=== PATIENT | female | born 1975 | race Caucasian/White ===

== ENCOUNTER 2020-08-26 15:09 | Inpatient (IN) ==
[2020-08-26] MEDS ORDERED: ALPRAZolam 0.5 MG TABLET PO STA ×2 (15:41→18:54)
--- NOTE | 2020-08-26 16:07 | CT Scan Report ---
HEAD CT NONCONTRAST CT DOSE: 638.56 mGycm HISTORY: Confusion. TECHNIQUE: Multiaxial CT images of the head were performed without the use of intravenous contrast. A utomated exposure control was utilized for this study. A dose lowering technique was utilized adheri ng to the principles of ALARA. Comparison: None. Findings: The paranasal sinuses and mastoid air cells are clear. The calvarium and skull base are int act. The ventricles and sulci are within normal limits. There is no mass, hematoma, midline shift, or acute infarct. Impression: No acute intracranial abnormality. ACT 112: Negative or not required by law. Electronically signed by: Bar Reyes M.D. 08/26/2020 4:06 PM
--- NOTE | 2020-08-26 16:14 | CT Scan Report ---
ABDOMEN AND PELVIS CT WITHOUT CONTRAST CT DOSE: 922.96 mGycm HISTORY: Left flank pain. TECHNIQUE: Multiaxial CT images of the abdomen and pelvis were performed without contrast. A dose lo wering technique was utilized adhering to the principles of ALARA. COMPARISON STUDY: None. FINDINGS: The lung bases are clear. No pneumoperitoneum. No pneumatosis. No fractures within the visu alized osseous structures. The unenhanced liver, gallbladder, spleen, adrenal glands, pancreas, and k idneys are unremarkable. No renal or ureteral stones. No hydronephrosis. The bladder and ovaries are within normal limits. An intrauterine device appears in good position. Minimal pelvic free fluid. Thi s is likely physiologic. Suboptimal evaluation for bowel pathology due to the lack of intravenous and oral contrast. Questionable thickening of the distal sigmoid colon is likely due to underdistention. Otherwise, no definite bowel wall thickening or obstruction. Scattered colonic diverticula. No evide nce for acute diverticulitis. Normal appendix. There is a 3 cm aneurysm at the right common femoral a rtery. This demonstrates moderate peripheral calcification. IMPRESSION: 1. No renal or ureteral stones. No hydronephrosis. 2. No definite bowel wall thickening or obstruction. 3. Normal appendix. 4. 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 Follow-up nonemergent vascular surgery consultation r ecommended for further evaluation. ACT 112: Positive. There are findings on this exam that require communication between the performing entity and the patient following Patient Test Result Information Act ([place] Act 112) guidelines. Electronically signed by: Bar Reyes M.D. 08/26/2020 4:13 PM
--- NOTE | 2020-08-26 16:50 | Emergency Department Note ---
Impression & Plan Psychosis, Anxiety, Delusional disorder ED Provider Note NAME: MATEO NIEVES AGE: 45 SEX: F : 1975 ARRIVES VIA: Walk-In INFORMANT: Patient, ED PROVIDER(S): Anthony Craig DO CHIEF COMPLAINT: Anxiety HPI: The patient is a 45-year-old female who presented to the emergency department through triage. The patient was dropped off at the front door. The patient states that she needs help with her mental health problems. The patient states that she has very severe anxiety. She states that she normally takes Xanax for her anxiety but has not taken this medication "in many years". The patient does not have any suicidal or homicidal ideation she will admit to. She denies having any fever. She states that she is very sick and keeps talking about Manuel and about God. She has significant adventism preoccupation. She states that she is very sick complaining of pain over her entire body. She denies having any recent injuries. She denies having any vomiting. She has had no exposure to COVID-19. The patient states that she is not from the area but staying with friends. ROS: See above HPI for pertinent positives & negatives. A total of 10 systems reviewed and were otherwise negative. PAST MEDICAL HISTORY: See Below PAST SURGICAL HISTORY: See Below FAMILY HISTORY: See Below SOCIAL HISTORY: See Below HOME MEDICATIONS: See Below ALLERGIES: See Below VITALS: See Below PHYSICAL EXAMINATION: GENERAL: The patient is awake and alert. She is somewhat anxious appearing and very guarded. EYES: The conjunctivae are clear. The pupils are round and reactive. EARS, NOSE, MOUTH AND THROAT: The nose is without any evidence of any deformity. Mucous membranes are moist. Tongue is midline. NECK: The neck is nontender and supple. RESPIRATORY: Normal respiratory effort is noted there is no evidence of wheezing rhonchi or rales CARDIOVASCULAR: Regular rate and rhythm noted there no murmurs rubs or gallops normal S1 normal S2. GASTROINTESTINAL: The abdomen is soft. Abdomen is nontender. MUSCULOSKELETAL/EXTREMITIES: There is no evidence of gross deformity full range of motion is noted in the hips and shoulders. SKIN: There is no obvious evidence of any rash. There are no petechiae, pallor or cyanosis noted. NEUROLOGIC: Patient is awake alert and oriented x3 strength is symmetric patellar reflexes are 2+ bilaterally PSYCH: The patient makes good eye contact for most of the evaluation. She is very guarded and appears very anxious. She is currently denying any suicidal i deation. The patient voices significant adventism preoccupation throughout the entire evaluation. MEDICAL DECISION MAKING: The patient is a 45-year-old female who presented to the emergency department for mental health evaluation. The patient was having severe anxiety as well as delusional behavior. She had significant adventism preoccupation. She cont inued to ask for anxiety medication. She was treated with Xanax in the emergency department. She was medically cleared in the emergency department which included also work-up for chronic pain. The patient did not have a definite history of mental health disorder other than panic attack. For this reason CT the head was obtained to ensure there was no other medical issues. The patient was reluctant to being inpatient and appeared to have some manipulative tendencies. For this reason I do feel the patient would be better served with a 302 petition to ensure her compliance with inpatient management. The patient was evaluated by the mental health adult protective caseworker in the emergency department. Triage Nursing notes reviewed. Prior medical records reviewed Vital Signs: reviewed and remarkable for no significant abnormalities Differential diagnosis: Mood disorder, infection, hypoglycemia, electrolyte abnormalities, cardiac sources, intracerebral event, toxicologic, trauma, neurologic, as well as other pathologies. ER treatment provided: See below Diagnostics interpreted by me: ECG: none Laboratory studies: As stated above and show below. Imaging studies: See below Consultation(s): none Past Med/Surg History Medical History Anxiety Panic attacks Social History Smoking Status: Current every day smoker Tobacco Type: Cigarettes Allergies Allergies Allergy/AdvReac Type Severity Reaction Status Date / Time No Known Allergies Allergy Verified 08/26/20 17:13 Home Meds Home Medications Medication Instructions Recorded Confirmed alprazolam [Xanax] 0.5 mg PO BID PRN 08/26/20 08/26/20 Results & Data (ED) Vital Signs Vital Signs - 24 hr 08/26/20 15:15 08/26/20 17:05 08/26/20 19:01 Temperature 36.3 C L Temperature Source Oral Pulse Rate 101 H Pulse Rate [Radial] 88 77 Pulse Rhythm [Radial] Regular Regular Pulse Strength [Radial] Normal Respiratory Rate 18 20 16 Respiratory Effort / Characteristics Non-Labored Spontaneous Non-Labored Spontaneous Non-Labored Spontaneous Respiratory Depth Normal Normal Respiratory Pattern Regular Regular Regular Blood Pressure 173/111 H Blood Pressure [Left Arm] 172/110 H 115/70 Blood Pressure Mean 131 Blood Pressure Mean [Left Arm] 130 85 Blood Pressure Position Sitting Blood Pressure Position [Left Arm] Lying Pulse Oximetry 99 97 97 Oxygen Delivery Method Room Air Room Air Room Air Sepsis Recent Fever Within 48 Hours No Sepsis New/Unexplained Change in Mental Status N/A Sepsis Action Taken by Nursing No Action Required Home Medications Current Medication List: was personally reviewed by me Laboratory Data Attestation: I reviewed the patient's lab results. Result diagrams: 08/26/20 20:00 08/26/20 16:25 Lab Results 08/26/20 08/26/20 08/26/20 Range/Units 16:25 16:25 16:25 WBC Cancelled RBC Cancelled Hgb Cancelled Hct Cancelled MCV Cancelled MCH Cancelled MCHC Cancelled RDW Std Deviation Cancelled RDW Coeff of Melissa Cancelled Plt Count Cancelled MPV Cancelled Immature Gran % (Auto) Cancelled Neut % (Auto) Cancelled Lymph % (Auto) Cancelled [place] % (Auto) Cancelled Eos % (Auto) Cancelled Baso % (Auto) Cancelled Neut # (Auto) Cancelled Lymph # (Auto) Cancelled [place] # (Auto) Cancelled Eos # (Auto) Cancelled Baso # (Auto) Cancelled Immature Gran # (Auto) Cancelled Absolute Nucleated RBC Cancelled Nucleated RBC % (auto) Cancelled Neutrophils % (Manual) Cancelled Band Neutrophils % Cancelled Lymphocytes % (Manual) Cancelled Prolymphocyte % Cancelled Reactive Lymphs % (Man) Cancelled Monocytes % (Manual) Cancelled Eosinophils % (Manual) Cancelled Basophils % (Manual) Cancelled Metamyelocytes % (Man) Cancelled Myelocytes % (Man) Cancelled Promyelocytes % (Man) Cancelled Blast Cells % (Manual) Cancelled Plasma Cell % (Manual) Cancelled Other Cells % Cancelled Nucleated RBC % Cancelled Neutrophils # (Manual) Cancelled Band Neutrophils # Cancelled Total Absolute Neuts Cancelled Lymphocytes # (Manual) Cancelled Prolymphocyte # Cancelled Reactive Lymphs # Cancelled Total Abs Lymphocytes Cancelled Monocytes # (Manual) Cancelled Eosinophils # (Manual) Cancelled Basophils # (Manual) Cancelled Metamyelocytes # (Man) Cancelled Myelocytes # (Manual) Cancelled Promyelocytes # (Man) Cancelled Blast Cells # (Man) Cancelled Plasma Cell # (Manual) Cancelled Other Cells # Cancelled Nucleated RBCs # (Man) Cancelled Hypersegmented Neuts Cancelled Hyposegmented Neuts Cancelled Hypogranular Neuts Cancelled Large Granular Lymphs Cancelled # Lrg Granular Lymphs Cancelled Hairy Cells Cancelled Smudge Cells Cancelled Toxic Granulation Cancelled Toxic Vacuolation Cancelled Dohle Bodies Cancelled Luz Maria Rods Cancelled Platelet Estimate Cancelled Hypogranular Platelets Cancelled Clumped Platelets Cancelled Giant Platelets Cancelled Platelet Satelliting Cancelled RBC Morphology Cancelled Polychromasia Cancelled Hypochromasia Cancelled Poikilocytosis Cancelled Basophilic Stippling Cancelled Anisocytosis Cancelled Microcytosis Cancelled Macrocytosis Cancelled Spherocytes Cancelled Pappenheimer Bodies Cancelled Sickle Cells Cancelled Target Cells Cancelled Tear Drop Cells Cancelled Ovalocytes Cancelled Stomatocytes Cancelled [place]ep[place] Bodies Cancelled Echinocytes Cancelled Acanthocytes (Spur) Cancelled Rouleaux Cancelled RBC Agglutinates Cancelled Schistocytes Cancelled RBC Morph Comment Cancelled Sezary Cell Cancelled Sodium 140 (136-145) mmol/L Potassium 3.8 (3.5-5.1) mmol/L Chloride 111 H (98-107) mmol/L Carbon Dioxide 22 (21-32) mmol/L Anion Gap 7.0 (3-11) BUN 14 (7-18) mg/dl Creatinine 0.74 (0.6-1.2) mg/dl Est Cr Clr Drug Dosing 105.6 ml/min Est GFR ( Amer) 114.2 Est GFR (Non-Af Amer) 98.5 BUN/Creatinine Ratio 18.8 (10-20) Glucose 99 (70-99) mg/dl Calcium 8.9 (8.5-10.1) mg/dl Total Bilirubin 0.4 (0.2-1) mg/dl AST 33 (15-37) U/L ALT 54 (12-78) U/L Alkaline Phosphatase 82 (45-117) U/L Total Protein 7.9 (6.4-8.2) gm/dl Albumin 4.0 (3.4-5.0) gm/dl Globulin 3.9 (2.5-4.0) gm/dl Albumin/Globulin Ratio 1.0 (0.9-2) TSH 1.270 (0.300-4.500) uIu/ml HCG, Qual (Negative) Urine Color Urine Appearance (Clear) Urine pH (4.5-7.5) Ur Specific [place] (1.000-1.030) Urine Protein (Negative) Urine Glucose (UA) (Negative) Urine Ketones (Negative) Urine Blood (Negative) Urine Nitrite (Negative) Urine Bilirubin (Negative) Urine Urobilinogen (Negative) Ur Leukocyte Esterase (Negative) Urine WBC (Auto) (0-5) /hpf Urine RBC (Auto) (0-4) /hpf U Hyaline Cast (Auto) (0-5) /lpf U Epithel Cells (Auto) (0-5) /lpf Urine Bacteria (Auto) (Negative) Salicylates < 1.7 L (2.8-20) mg/dl Urine Opiates Screen (Neg) Ur Methadone, Qual (Neg) Acetaminophen 5 L (10-30) ug/ml Urine Barbiturates (Neg) Ur Phencyclidine (PCP) (Neg) U Amphetamin/Meth Scrn (Neg) MDMA (Ecstasy) Screen (Neg) U Benzodiazepines Scrn (Neg) Ur Cocaine Metabolite (Neg) U Marijuana (THC) Screen (Neg) Ethyl Alcohol mg/dL (0-3) mg/dl 08/26/20 08/26/20 08/26/20 Range/Units 16:25 16:25 18:55 WBC RBC Hgb Hct MCV MCH MCHC RDW Std Deviation RDW Coeff of Melissa Plt Count MPV Immature Gran % (Auto) Neut % (Auto) Lymph % (Auto) [place] % (Auto) Eos % (Auto) Baso % (Auto) Neut # (Auto) Lymph # (Auto) [place] # (Auto) Eos # (Auto) Baso # (Auto) Immature Gran # (Auto) Absolute Nucleated RBC Nucleated RBC % (auto) Neutrophils % (Manual) Band Neutrophils % Lymphocytes % (Manual) Prolymphocyte % Reactive Lymphs % (Man) Monocytes % (Manual) Eosinophils % (Manual) Basophils % (Manual) Metamyelocytes % (Man) Myelocytes % (Man) Promyelocytes % (Man) Blast Cells % (Manual) Plasma Cell % (Manual) Other Cells % Nucleated RBC % Neutrophils # (Manual) Band Neutrophils # Total Absolute Neuts Lymphocytes # (Manual) Prolymphocyte # Reactive Lymphs # Total Abs Lymphocytes Monocytes # (Manual) Eosinophils # (Manual) Basophils # (Manual) Metamyelocytes # (Man) Myelocytes # (Manual) Promyelocytes # (Man) Blast Cells # (Man) Plasma Cell # (Manual) Other Cells # Nucleated RBCs # (Man) Hypersegmented Neuts Hyposegmented Neuts Hypogranular Neuts Large Granular Lymphs # Lrg Granular Lymphs Hairy Cells Smudge Cells Toxic Granulation Toxic Vacuolation Dohle Bodies Luz Maria Rods Platelet Estimate Hypogranular Platelets Clumped Platelets Giant Platelets Platelet Satelliting RBC Morphology Polychromasia Hypochromasia Poikilocytosis Basophilic Stippling Anisocytosis Microcytosis Macrocytosis Spherocytes Pappenheimer Bodies Sickle Cells Target Cells Tear Drop Cells Ovalocytes Stomatocytes Zepeda[place] Bodies Echinocytes Acanthocytes (Spur) Rouleaux RBC Agglutinates Schistocytes RBC Morph Comment Sezary Cell Sodium (136-145) mmol/L Potassium (3.5-5.1) mmol/L Chloride (98-107) mmol/L Carbon Dioxide (21-32) mmol/L Anion Gap (3-11) BUN (7-18) mg/dl Creatinine (0.6-1.2) mg/dl Est Cr Clr Drug Dosing ml/min Est GFR ( Amer) Est GFR (Non-Af Amer) BUN/Creatinine Ratio (10-20) Glucose (70-99) mg/dl Calcium (8.5-10.1) mg/dl Total Bilirubin (0.2-1) mg/dl AST (15-37) U/L ALT (12-78) U/L Alkaline Phosphatase (45-117) U/L Total Protein (6.4-8.2) gm/dl Albumin (3.4-5.0) gm/dl Globulin (2.5-4.0) gm/dl Albumin/Globulin Ratio (0.9-2) TSH (0.300-4.500) uIu/ml HCG, Qual Negative (Negative) Urine Color Yellow Urine Appearance Cloudy A (Clear) Urine pH 5.5 (4.5-7.5) Ur Specific [place] 1.019 (1.000-1.030) Urine Protein Negative (Negative) Urine Glucose (UA) Negative (Negative) Urine Ketones Negative (Negative) Urine Blood Negative (Negative) Urine Nitrite Positive A (Negative) Urine Bilirubin Negative (Negative) Urine Urobilinogen Negative (Negative) Ur Leukocyte Esterase Trace H (Negative) Urine WBC (Auto) 1-5 (0-5) /hpf Urine RBC (Auto) 0-4 (0-4) /hpf U Hyaline Cast (Auto) 1-5 (0-5) /lpf U Epithel Cells (Auto) >30 H (0-5) /lpf Urine Bacteria (Auto) 4+ H (Negative) Salicylates (2.8-20) mg/dl Urine Opiates Screen (Neg) Ur Methadone, Qual (Neg) Acetaminophen (10-30) ug/ml Urine Barbiturates (Neg) Ur Phencyclidine (PCP) (Neg) U Amphetamin/Meth Scrn (Neg) MDMA (Ecstasy) Screen (Neg) U Benzodiazepines Scrn (Neg) Ur Cocaine Metabolite (Neg) U Marijuana (THC) Screen (Neg) Ethyl Alcohol mg/dL < 3.0 (0-3) mg/dl 08/26/20 08/26/20 Range/Units 18:55 20:00 WBC 7.73 RBC 4.23 Hgb 13.7 Hct 38.5 MCV 91.0 MCH 32.4 MCHC 35.6 RDW Std Deviation 41.8 RDW Coeff of Melissa 12.5 Plt Count 195 MPV 10.2 Immature Gran % (Auto) 0.1 Neut % (Auto) 62.6 Lymph % (Auto) 29.2 [place] % (Auto) 6.5 Eos % (Auto) 1.3 Baso % (Auto) 0.3 Neut # (Auto) 4.84 Lymph # (Auto) 2.26 [place] # (Auto) 0.50 Eos # (Auto) 0.10 Baso # (Auto) 0.02 Immature Gran # (Auto) 0.01 Absolute Nucleated RBC Nucleated RBC % (auto) Neutrophils % (Manual) Band Neutrophils % Lymphocytes % (Manual) Prolymphocyte % Reactive Lymphs % (Man) Monocytes % (Manual) Eosinophils % (Manual) Basophils % (Manual) Metamyelocytes % (Man) Myelocytes % (Man) Promyelocytes % (Man) Blast Cells % (Manual) Plasma Cell % (Manual) Other Cells % Nucleated RBC % Neutrophils # (Manual) Band Neutrophils # Total Absolute Neuts Lymphocytes # (Manual) Prolymphocyte # Reactive Lymphs # Total Abs Lymphocytes Monocytes # (Manual) Eosinophils # (Manual) Basophils # (Manual) Metamyelocytes # (Man) Myelocytes # (Manual) Promyelocytes # (Man) Blast Cells # (Man) Plasma Cell # (Manual) Other Cells # Nucleated RBCs # (Man) Hypersegmented Neuts Hyposegmented Neuts Hypogranular Neuts Large Granular Lymphs # Lrg Granular Lymphs Hairy Cells Smudge Cells Toxic Granulation Toxic Vacuolation Dohle Bodies Luz Maria Rods Platelet Estimate Hypogranular Platelets Clumped Platelets Giant Platelets Platelet Satelliting RBC Morphology Polychromasia Hypochromasia Poikilocytosis Basophilic Stippling Anisocytosis Microcytosis Macrocytosis Spherocytes Pappenheimer Bodies Sickle Cells Target Cells Tear Drop Cells Ovalocytes Stomatocytes Zepeda-[place] Bodies Echinocytes Acanthocytes (Spur) Rouleaux RBC Agglutinates Schistocytes RBC Morph Comment Sezary Cell Sodium (136-145) mmol/L Potassium (3.5-5.1) mmol/L Chloride (98-107) mmol/L Carbon Dioxide (21-32) mmol/L Anion Gap (3-11) BUN (7-18) mg/dl Creatinine (0.6-1.2) mg/dl Est Cr Clr Drug Dosing ml/min Est GFR ( Amer) Est GFR (Non-Af Amer) BUN/Creatinine Ratio (10-20) Glucose (70-99) mg/dl Calcium (8.5-10.1) mg/dl Total Bilirubin (0.2-1) mg/dl AST (15-37) U/L ALT (12-78) U/L Alkaline Phosphatase (45-117) U/L Total Protein (6.4-8.2) gm/dl Albumin (3.4-5.0) gm/dl Globulin (2.5-4.0) gm/dl Albumin/Globulin Ratio (0.9-2) TSH (0.300-4.500) uIu/ml HCG, Qual (Negative) Urine Color Urine Appearance (Clear) Urine pH (4.5-7.5) Ur Specific [place] (1.000-1.030) Urine Protein (Negative) Urine Glucose (UA) (Negative) Urine Ketones (Negative) Urine Blood (Negative) Urine Nitrite (Negative) Urine Bilirubin (Negative) Urine Urobilinogen (Negative) Ur Leukocyte Esterase (Negative) Urine WBC (Auto) (0-5) /hpf Urine RBC (Auto) (0-4) /hpf U Hyaline Cast (Auto) (0-5) /lpf U Epithel Cells (Auto) (0-5) /lpf Urine Bacteria (Auto) (Negative) Salicylates (2.8-20) mg/dl Urine Opiates Screen Neg (Neg) Ur Methadone, Qual Neg (Neg) Acetaminophen (10-30) ug/ml Urine Barbiturates Neg (Neg) Ur Phencyclidine (PCP) Neg (Neg) U Amphetamin/Meth Scrn Neg (Neg) MDMA (Ecstasy) Screen Neg (Neg) U Benzodiazepines Scrn Pos H (Neg) Ur Cocaine Metabolite Neg (Neg) U Marijuana (THC) Screen Neg (Neg) Ethyl Alcohol mg/dL (0-3) mg/dl Administered Medications Discontinued Medications Acetaminophen (Acetaminophen 500 Mg Tab) 1,000 mg PO NOW STA Stop: 08/26/20 19:32 Last Admin: 08/26/20 20:11 Dose: 1,000 mg Documented by: [id number] Alprazolam (Alprazolam 0.5 Mg Tablet) 1 mg PO NOW STA Stop: 08/26/20 15:42 Last Admin: 08/26/20 15:45 Dose: 1 mg Documented by: [id number] Alprazolam (Alprazolam 0.5 Mg Tablet) 1 mg PO NOW STA Stop: 08/26/20 18:55 Last Admin: 08/26/20 19:03 Dose: 1 mg Documented by: [id number] Imaging Data Radiologist's Impression: Patient: MATEO NIEVES Admit Date: 08/26/20 MR#: [id number] Address1: [address] [place] [address] Acct ID:[id number] Address2: [facility] Date: 1975 [facility] Zip: [place] [address] Age: 45 Location: ED Sex: F Room/Bed: Att Phy: Diagnosis: REALLY SICK Holly Phy: PCP,NO Service Date: 08/26/20 [facility] Phy: Interpreting Phy: Bar Reyes MD Admit Phy: Ordering Phy: Anthony Craig DO cc: ~ XR chest 1V portable HISTORY: Altered mental status. COMPARISON: None. FINDINGS: No pneumothorax. No pleural effusions. The lungs are clear. The heart is normal in size. Old, healed left-sided rib fractures. IMPRESSION: No acute process. ACT 112: Negative or not required by law. Electronically signed by: Bar Reyes M.D. 08/26/2020 4:53 PM Dictated: 08/26/201651 Transcribed: 08/26/201651 Patient: MATEO NIEVES Admit Date: 08/26/20 MR#: [id number] Address1: [place] Acct ID:[id number] Address2: [address] Date: 1975 [facility] Zip: [place], [place] Age: 45 Location: ED Sex: F Room/Bed: Att Phy: Diagnosis: REALLY SICK Holly Phy: PCP,NO Service Date: 08/26/20 [facility] Phy: Interpreting Phy: Bar Reyes MD Admit Phy: Ordering Phy: Anthony Craig DO cc: ~ HEAD CT NONCONTRAST CT DOSE: 638.56 mGycm HISTORY: Confusion. TECHNIQUE: Multiaxial CT images of the head were performed without the use of intravenous contrast. Automated exposure control was utilized for this study. A dose lowering technique was utilized adhering to the principles of ALARA. Comparison: None. Findings: The paranasal sinuses and mastoid air cells are clear. The calvarium and skull base are intact. The ventricles and sulci are within normal limits. There is no mass, hematoma, midline shift, or acute infarct. Impression: No acute intracranial abnormality. ACT 112: Negative or not required by law. Electronically signed by: Bar Reyes M.D. 08/26/2020 4:06 PM Dictated: 08/26/20 1600 Transcribed: 08/26/20 1600 Patient: MATEO NIEVES Admit Date: 08/26/20 MR#: [id number] Address1: [place] Acct ID:[id number] Address2: [place] Date: 1975 [facility] Zip: [place] Age: 45 Location: ED Sex: F Room/Bed: Att Phy: Diagnosis: REALLY SICK Holly Phy: PCP,NO Service Date: 08/26/20 [facility] Phy: Interpreting Phy: Bar Reyes MD Admit Phy: Ordering Phy: Anthony Craig, cc: ~ ABDOMEN AND PELVIS CT WITHOUT CONTRAST CT DOSE: 922.96 mGycm HISTORY: Left flank pain. TECHNIQUE: Multiaxial CT images of the abdomen and pelvis were performed without contrast. A dose lowering technique was utilized adhering to the principles of ALARA. COMPARISON STUDY: None. FINDINGS: The lung bases are clear. No pneumoperitoneum. No pneumatosis. No fractures within the visualized osseous structures. The unenhanced liver, ga llbladder, spleen, adrenal glands, pancreas, and kidneys are unremarkable. No renal or ureteral stones. No hydronephrosis. The bladder and ovaries are within normal limits. An intrauterine device appears in good position. Minimal pelvic free fluid. This is likely physiologic. Suboptimal evaluation for bowel pathology due to the lack of intravenous and oral contrast. Questionable thickening of the distal sigmoid colon is likely due to underdistention. Otherwise, no definite bowel wall thickening or obstruction. Scattered colonic diverticula. No evidence for acute diverticulitis. Normal appendix. There is a 3 cm aneurysm at the right common femoral artery. This demonstrates moderate peripheral calcification. IMPRESSION: 1. No renal or ureteral stones. No hydronephrosis. 2. No definite bowel wall thickening or obstruction. 3. Normal appendix. 4. 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 Follow-up nonemergent vascular surgery consultation recommended for further evaluation. ACT 112: Positive. There are findings on this exam that require communication between the performing entity and the patient following Patient Test Result Information Act ([place] Act 112) guidelines. Electronically signed by: Bar Reyes M.D. 08/26/2020 4:13 PM Dictated: 08/26/201605 Transcribed: 08/26/201605 Blood Pressure Blood Pressure Findings: Normal blood pressure Discharge Plan Visit Data Chief Complaint: Mental Health Evaluation Stated Complaint: REALLY SICK ED Provider: Anthony Craig Discharge Problem: Psychosis, Anxiety, Delusional disorder Patient Disposition: Still a Patient Condition: Good Forms Stand Alone Forms: My [facility], Suicide Prevention Resources Prescriptions Prescriptions: No Action alprazolam [Xanax] 0.5 mg Tablet 0.5 mg PO BID PRN (Reason: Anxiety) RF: 0 Referrals Referrals: PCP,NO [Primary Care Provider] - Discharge Problem: Psychosis Qualifiers: Psychosis type: unspecified psychosis type Qualified Code(s): F29 - Unspecified psychosis not due to a substance or known physiological condition
--- NOTE | 2020-08-26 16:54 | XRay Report ---
XR chest 1V portable HISTORY: Altered mental status. COMPARISON: None. FINDINGS: No pneumothorax. No pleural effusions. The lungs are clear. The heart is normal in size. Ol d, healed left-sided rib fractures. IMPRESSION: No acute process. ACT 112: Negative or not required by law. Electronically signed by: Bar Reyes M.D. 08/26/2020 4:53 PM
[2020-08-26 17:01] LABS: Acetaminophen 5 ug/ml (10-30); Salicylate < 1.7 mg/dl (2.8-20)
[2020-08-26 17:02] LABS: Pregnancy Test, Serum Negative (Negative)
[2020-08-26 17:12] LABS: BUN Creatinine Ratio 18.8 (10-20); Bilirubin,Total 0.4 mg/dl (0.2-1); Calcium 8.9 mg/dl (8.5-10.1); Creatinine Clr Calc Pharmacy 105.6 ml/min; Est GFR (African American) 114.2; Est GFR (Non-African American) 98.5; Globulin 3.9 gm/dl (2.5-4.0); Potassium 3.8 mmol/L (3.5-5.1); Thyroid Stimulating Hormone 1.27 uIu/ml (0.300-4.500); Total Protein 7.9 gm/dl (6.4-8.2)
[2020-08-26 19:07] LABS: Appearance Urine Cloudy (Clear); Bacteria Urine Automated 4+ (Negative); Bilirubin Urine Negative (Negative); Blood Urine Negative (Negative); Color Urine Yellow; Epithelial Cell Urine Auto >30 /lpf (0-5); Glucose Urine UA Negative (Negative); Ketones Urine Negative (Negative); Leukocyte Esterase Urine Trace (Negative); Nitrite Urine Positive (Negative); Protein Urine Negative (Negative); RBC Urine Automated 0-4 /hpf (0-4); Specific Gravity Urine 1.019 (1.000-1.030); Urobilinogen Urine Negative (Negative); pH Urine 5.5 (4.5-7.5)
[2020-08-26] MEDS ORDERED: ACETAMINOPHEN 500 MG TAB PO STA (19:31)
[2020-08-26 19:34] LABS: Amphetamines+Metham, Urine Neg (Neg); Barbiturates, Urine Neg (Neg); Benzodiazepine, Urine Pos (Neg); Cocaine, Urine Neg (Neg); MDMA (Ecstacy), Urine Neg (Neg); Methadone, Urine Neg (Neg); Opiate, Urine Neg (Neg); Phencyclidine, Urine Neg (Neg)
[2020-08-26 20:08] LABS: Basophils # (auto) 0.02 K/uL (0-0.2); Basophils % (auto) 0.3 %; Eosinophils % (auto) 1.3 %; Hematocrit (blood only) 38.5 % (37-47); Hemoglobin 13.7 g/dL (12.0-16.0); Immature Granulocytes # (auto) 0.01 K/uL (0.00-0.02); Immature Granulocytes % (auto) 0.1 %; Lymphocytes # (auto) 2.26 K/uL (1.2-3.4); Lymphocytes % (auto) 29.2 %; Mean Corpuscular Hemoglobin 32.4 pg (25-34); Mean Corpuscular Hgb Conc 35.6 g/dL (32-36); Mean Platelet Volume 10.2 fL (7.4-10.4); Monocytes % (auto) 6.5 %; Neutrophils # (auto) 4.84 K/uL (1.4-6.5); Neutrophils % (auto) 62.6 %; Platelet Count 195 K/uL (130-400); RDW Coefficient of Variation 12.5 % (11.5-14.5); RDW Standard Deviation 41.8 fL (36.4-46.3); Red Blood Count 4.23 M/uL (4.2-5.4); White Blood Count 7.73 K/uL (4.8-10.8)
[2020-08-26] MEDS ORDERED: SODIUM CHLORIDE 0.65% NA SOLN 45 ML (OCEAN) PRN (23:40)
[2020-08-26] MEDS ORDERED: BISMUTH SUBSALICYLATE LIQD 236 ML PO PRN (23:40)
[2020-08-26] MEDS ORDERED: MAGNESIUM HYDROXIDE SUSP 30 ML UDC PO PRN (23:40)
--- NOTE | 2020-08-27 01:52 | Emergency Department Note ---
ED Visit Note The patient was taken in signout from Dr. Craig at the change of shift. Please see that note for details. The patient was pending inpatient psychiatric placement for psychosis with lack of insight with 302 upheld following medical clearance. She was accepted to [facility], however, due to staffing will not go upstairs until tomorrow morning. [facility] recommends AWSS monitoring and Risperdal M tab 0.5mg q6h prn psychosis. Patient signed out to Dr. Michaels at change of shift. . : Psychosis Qualifiers: Psychosis type: unspecified psychosis type Qualified Code(s): F29 - Unspecified psychosis not due to a substance or known physiological condition
--- NOTE | 2020-08-27 07:10 | Emergency Department Note ---
ED Visit Note Patient signed out to me at change of shift by Dr. Castro. Please see his note for additional information. Patient was previously medically cleared, and is currently a sign 302. Patient was accepted at [facility]. however she could not be moved there until later on this morning. Patient remained in the emergency room overnight. 0710: No issues regarding the patient overnight. Patient still awaiting transport upstairs to [facility]. . : Psychosis Qualifiers: Psychosis type: unspecified psychosis type Qualified Code(s): F29 - Unspecified psychosis not due to a substance or known physiological condition
[2020-08-27] MEDS: risperiDONE ODT 0.5 MG SOLTAB PO PRN ×2 (10:33→17:01)
[2020-08-27] MEDS: ACETAMINOPHEN 325 MG TAB PO PRN ×2 (10:34→17:52)
[2020-08-27] MEDS ORDERED: LORazepam 1 MG TAB PO PRN (11:40)
[2020-08-27] MEDS: ALUMINUM/MAGNESIUM SUSP 30 ML UDC PO PRN (11:41)
[2020-08-27] MEDS ORDERED: LORazepam 0.5 MG TAB PO ONE (11:47)
[2020-08-27] MEDS ORDERED: risperiDONE ODT 0.5 MG SOLTAB PO ONE (12:00)
[2020-08-27] MEDS: LORazepam 1 MG TAB PO PRN ×4 (12:49→21:10)
--- NOTE | 2020-08-27 15:02 | History & Physical ---
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 Rouleaux RBC Agglutinates Schistocytes RBC Morph Comment Sezary Cell Sodium Potassium Chloride Carbon Dioxide Anion Gap BUN Creatinine Est Cr Clr Drug Dosing Est GFR ( Amer) Est GFR (Non-Af Amer) BUN/Creatinine Ratio Glucose Calcium Total Bilirubin AST ALT Alkaline Phosphatase Total Protein Albumin Globulin Albumin/Globulin Ratio TSH HCG, Qual Urine Color Urine Appearance Urine pH Ur Specific [place] Urine Protein Urine Glucose (UA) Urine Ketones Urine Blood Urine Nitrite Urine Bilirubin Urine Urobilinogen Ur Leukocyte Esterase Urine WBC (Auto) Urine RBC (Auto) U Hyaline Cast (Auto) U Epithel Cells (Auto) Urine Bacteria (Auto) Salicylates Urine Opiates Screen Ur Methadone, Qual Acetaminophen Urine Barbiturates Ur Phencyclidine (PCP) U Amphetamin/Meth Scrn MDMA (Ecstasy) Screen U OH-Alprazolam Confrm U Benzodiazepines Scrn 7-Amino Clonazepam Ur Nordiazepam Confirm U OH-ethylflurazepam U Lorazepam Cnf GC/MS U Oxazepam Confm GC/MS Ur Temazepam Confirm U OH-Triazolam Confirm U OH-Midazolam Confirm Ur Cocaine Metabolite U Marijuana (THC) Screen Drug Screen Comment Ethyl Alcohol mg/dL SARS-CoV-2 Ag (Rapid) Cancelled Negative Current Inpatient Medications Current Inpatient Medications: Current Inpatient Medications Acetaminophen (Acetaminophen 325 Mg Tab) 650 mg PO Q4H PRN PRN Reason: Headache or Minor Fever Stop: 09/25/20 23:39 Last Admin: 08/27/20 10:34 Dose: 650 mg Documented by: Al Hydrox/Mg Hydrox/Simethicone (Aluminum/Magnesium Susp 30 Ml Udc) 30 ml PO Q4H PRN PRN Reason: GI Upset Stop: 09/25/20 23:39 Last Admin: 08/27/20 11:41 Dose: 30 ml Documented by: Bismuth Subsalicylate (Bismuth Subsalicylate Liqd 236 Ml) 15 ml PO PRN PRN PRN Reason: Loose Stool Stop: 09/25/20 23:39 Hydroxyzine HCl (Hydroxyzine Hcl 25 Mg Tab) 50 mg PO HSZ PRN PRN Reason: Insomnia Stop: 09/25/20 23:39 Hydroxyzine HCl (Hydroxyzine Hcl 25 Mg Tab) 25 mg PO Q4H PRN PRN Reason: Anxiety Stop: 09/25/20 23:39 Lorazepam (Lorazepam 1 Mg Tab) 1 - 3 mg PO UD PRN; Protocol PRN Reason: EtoH Withdrawal AWSS 6-10+ Stop: 09/26/20 12:26 Last Admin: 08/27/20 12:49 Dose: 2 mg Documented by: Magnesium Hydroxide (Magnesium Hydroxide Susp 30 Ml Udc) 30 ml PO DAILY PRN PRN Reason: Constipation Stop: 09/25/20 23:39 Risperidone (Risperidone Odt 0.5 Mg Soltab) 0.5 mg PO Q6H PRN PRN Reason: Anxiety/Agitation Stop: 09/26/20 01:51 Last Admin: 08/27/20 10:33 Dose: 0.5 mg Documented by: Risperidone (Risperidone Odt 1mg) 1 mg PO AMHS YANELIS Stop: 09/26/20 20:59 Sodium Chloride (Sodium Chloride 0.65% Na Soln 45 Ml ([place])) 1 - 2 sprays NA PRN PRN PRN Reason: Nasal Dryness/Congestion Stop: 09/25/20 23:39
[2020-08-27] MEDS: hydrOXYzine HCl 25 MG TAB PO PRN (22:11)
[2020-08-28] MEDS: hydrOXYzine HCl 25 MG TAB PO PRN ×3 (04:12→21:14)
[2020-08-28] MEDS: LORazepam 1 MG TAB PO PRN ×3 (09:50→17:06)
[2020-08-28] MEDS: ALUMINUM/MAGNESIUM SUSP 30 ML UDC PO PRN (10:25)
[2020-08-28] MEDS: GABAPENTIN 300 MG CAP PO SCH ×2 (14:43→21:13)
[2020-08-28] MEDS: DIPHENOXYLATE/ATROPINE 2.5/0.025MG TAB PO PRN (15:05)
[2020-08-28] MEDS: cloNIDine HCL 0.1 MG TAB PO PRN (15:05)
--- NOTE | 2020-08-28 16:49 | Psychiatric Progress Note ---
Date of Service August 28, 2020 Impression / Recommendations Impression The patient is a 45yo female with current psychosis and likely tomas given at time of admission on 08/27 reported poor sleep, and pressured speech and flight of ideas with paranoid delusional based ideation that she is being stalked , but also that she is posessed by evil and being eaten from the inside out. 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 INpatient is least restrictive and most appropriate setting for care while we stablize her mood and thought disorder, establish medication regimen, obtain further collateral and identify any additional stressors (e.g. legal concerns) and supports, and arrange aftercare in/near a community where she lives. (1) Psychosis: 08/27 - inpatient is lease restrictive and most appropriate setting for care given so severely psychotic could not function in community to care for self, 302 ends 08/31/20 evening - Risperdal 1mg po bid with 0.5mg q6h prn agitation/psychosis - reality testing, and overtime involvement in [facility] as she improves (2) Opiate withdrawal: 08/27 suspected, confirmed by further history and obvious sx 08/28 placed on clonidine/lomotil protocol,. when more organized will discuss D&A services and aftercare (3) Benzodiazepine withdrawal: 08/27 and continued 08/28 placed on AWSS with ativan symptomatic dosing, but will not prescribe scheduled medications for this patient, once more organized will discuss outpatient D&A services (4) Substance-induced anxiety disorder: 08/28 severe anxiety above AWSS and ativan scored dosing, may be due to benzo withdrawal, opiate withdrawal, elevated/irritable mood, and psychosis, but could be underlying primary anxiety disorder as well. Will add gabapentin 300mg po tid to target anxiety with non-controlled med that will not risk further elevated mood states, and reassess once her mood is more stable if this is best option. Will watch for sedation given risperdal gabapentin, scored dosing of ativan. Inventory Assets Strengths: in a safe environmnet, willing to take medications Needs: further assessment, inatpietn stablization, aftercare, identification of supports Risk Factors Assessment Male: No : Yes Mental Health Diagnoses: Yes Smoker: Yes Protective Factors Assessment Moravian Beliefs: Yes : No Responsible for Young Children: No Employed: No Interval History Chief Complaint "You need to give me something for anxiety". Review of Systems Sleep Information Total Hours of Sleep: 5 Meal Information Percent Meal Consumed - Breakfast: 100 Percent Meal Consumed - Lunch: 100 Percent Meal Consumed - Dinner: 100 Subjective Subjective Patient was seen & assessed and interval progress reviewed with nursing and s ocial work. Jeffrey was noted to continue to remain delusional about possession yesterday. Her abrupt demeanor and loud speech has been disruptive at tiems on the unit. SHe had some form of abrupt interaction with another lacey who then retreated to his room last evening. She slept 5hours and this morning divulged to nursing staff that she indeed is withdrawing from heroin, stated she does not exactly remember last use, maybe last week. But is having rhinorrea, sneezing, loose bowels and pain. She is med seeking asked nursing for something for anxiety and withdrawal and pain naming benzos and narcotics she feels she should be prescribed. SHe did score several times on the AWSS yesterday and was given ativan for that. Lacey was seen at the bedside. She states she is very anxious and needs ativan when noted she would receive ativan for symptoms on the withdrawal scale only then she asks for klonpin. Provider noted we could prescribe gabapentin and she is initially agreeable sta ting "I took that before" but then later is perseverative again on benzodiezepenes. She notes her thoughts are fast, and jumbled at times. She is feeling "food is sticking to my intestines today" but remains convinced she is posessed, and makes some unclear statements about not knowing family's phone numbers to call assure they are not then referencing some taxicab starter's name who is involved. She states she feels safe here, and denies SE to the risperdal she received and is willing to continue to take it. Physical Exam Psychiatric Orientation: alert, oriented to person and oriented to place delusional thoughts about present situation Apperance: appropriately dressed (hair is combed) Eye Contact: good eye contact Motor Behavior: + psychomotor agitation (repositions on the bed, stands up adjusts clothes sits down); + abnormal motor movements and n EPS voluble speech but is interruptable and can participate in bidirectional convesation today Affect: + irritable affect Mood: + irritable mood Thought Process: + tangential thought process and + perseveration (on need for controlled meds for anxiety and pain) Thought Content: + preoccupation, + delusions and + persecution Suicidal Thoughts: denies suicidal thoughts Homicidal Thoughts: denies homicidal thoughts Hallucinations: no auditory hallucinations and no visual hallucinations limited attention, limited recall as rooted in delusional beliefs and gives inconsistent history Estimated Intelligence: average estimated intelligence Insight: + poor insight Judgement: + poor judgement Vital Signs (Past 24 Hours) Last Vital Signs Temp 36.4 C L 08/28/20 14:00 Pulse 128 H 08/28/20 14:00 Resp 16 08/28/20 14:00 BP 132/90 08/28/20 14:00 Pulse Ox 98 08/27/20 20:00 Results & Data ([facility]) Current Inpatient Medications Current Inpatient Medications: Current Inpatient Medications Acetaminophen (Acetaminophen 325 Mg Tab) 650 mg PO Q4H PRN PRN Reason: Headache or Minor Fever Stop: 09/25/20 23:39 Last Admin: 08/27/20 17:52 Dose: 650 mg Documented by: Al Hydrox/Mg Hydrox/Simethicone (Aluminum/Magnesium Susp 30 Ml Udc) 30 ml PO Q4H PRN PRN Reason: GI Upset Stop: 09/25/20 23:39 Last Admin: 08/28/20 10:25 Dose: 30 ml Documented by: Bismuth Subsalicylate (Bismuth Subsalicylate Liqd 236 Ml) 15 ml PO PRN PRN PRN Reason: Loose Stool Stop: 09/25/20 23:39 Clonidine HCl (Clonidine Hcl 0.1 Mg Tab) 0.1 mg PO Q2H PRN PRN Reason: For any 2 symptoms Stop: 09/27/20 13:07 Last Admin: 08/28/20 15:05 Dose: 0.1 mg Documented by: Diphenoxylate HCl/Atropine (Diphenoxylate/Atropine 2.5/0.025mg Tab) 1 tab PO Q4H PRN PRN Reason: Abdomincal cramping/diarrhea Stop: 09/27/20 13:07 Last Admin: 08/28/20 15:05 Dose: 1 tab Documented by: Gabapentin (Gabapentin 300 Mg Cap) 300 mg PO TID YANELIS Stop: 09/27/20 13:59 Last Admin: 08/28/20 14:43 Dose: 300 mg Documented by: Hydroxyzine HCl (Hydroxyzine Hcl 25 Mg Tab) 50 mg PO HSZ PRN PRN Reason: Insomnia Stop: 09/25/20 23:39 Last Admin: 08/27/20 22:11 Dose: 50 mg Documented by: Hydroxyzine HCl (Hydroxyzine Hcl 25 Mg Tab) 25 mg PO Q4H PRN PRN Reason: Anxiety Stop: 09/25/20 23:39 Last Admin: 08/28/20 09:27 Dose: 25 mg Documented by: Lorazepam (Lorazepam 1 Mg Tab) 1 - 3 mg PO UD PRN; Protocol PRN Reason: EtoH Withdrawal AWSS 6-10+ Stop: 09/26/20 12:26 Last Admin: 08/28/20 13:26 Dose: 1 mg Documented by: Magnesium Hydroxide (Magnesium Hydroxide Susp 30 Ml Udc) 30 ml PO DAILY PRN PRN Reason: Constipation Stop: 09/25/20 23:39 Risperidone (Risperidone Odt 0.5 Mg Soltab) 0.5 mg PO Q6H PRN PRN Reason: Anxiety/Agitation/psychosis Stop: 09/26/20 08:59 Risperidone (Risperidone Odt 1mg) 1 mg PO TID YANELIS Stop: 09/27/20 14:14 Last Admin: 08/28/20 15:06 Dose: 1 mg Documented by: Sodium Chloride (Sodium Chloride 0.65% Na Soln 45 Ml ([place])) 1 - 2 sprays NA PRN PRN PRN Reason: Nasal Dryness/Congestion Stop: 09/25/20 23:39 Mental Health & Subst Abuse Tx Therapist Name of Therapist: None Road Engineer Name of Road Engineer: None (1) Psychosis Psychosis type: unspecified psychosis type Qualified Code(s): F29 - Unspecified psychosis not due to a substance or known physiological condition
[2020-08-28] MEDS: ACETAMINOPHEN 325 MG TAB PO PRN (21:25)
[2020-08-29] MEDS: risperiDONE ODT 0.5 MG SOLTAB PO PRN ×3 (06:47→23:28)
[2020-08-29] MEDS: GABAPENTIN 300 MG CAP PO SCH ×3 (09:03→20:25)
[2020-08-29] MEDS: cloNIDine HCL 0.1 MG TAB PO PRN ×3 (09:53→21:18)
[2020-08-29] MEDS: DIPHENOXYLATE/ATROPINE 2.5/0.025MG TAB PO PRN (10:17)
[2020-08-29] MEDS: hydrOXYzine HCl 25 MG TAB PO PRN ×4 (15:44→23:21)
--- NOTE | 2020-08-29 18:51 | Psychiatric Progress Note ---
Date of Service August 29, 2020 Impression / Recommendations Impression The patient is a 45yo female with current psychosis and likely tomas given at time of admission on 08/27 reported poor sleep, and pressured speech and flight of ideas with paranoid delusional based ideation that she is being stalked , but also that she is posessed by evil and being eaten from the inside out. 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 INpatient is least restrictive and most appropriate setting for care while we stablize her mood and thought disorder, establish medication regimen, obtain further collateral and identify any additional stressors (e.g. legal concerns) and supports, and arrange aftercare in/near a community where she lives. (1) Psychosis: 08/27 and 08/28 - inpatient is lease restrictive and most appropriate setting for care given so severely psychotic could not function in community to care for self, 302 ends 08/31/20 evening - Risperdal 1mg po bid with 0.5mg q6h prn agitation/psychosis - reality testing, and overtime involvement in [facility] as she improves 08/29 -Increased Risperdal to 1 mg p.o. 3 times daily, I did consider adding a secondary mood stabilizer but given that she is on the clonidine withdrawal protocol and we added gabapentin I will hold at this time (2) Opiate withdrawal: 08/27 suspected, confirmed by further history and obvious sx 08/28 placed on clonidine/lomotil protocol,. when more organized will discuss D&A services and aftercare (3) Benzodiazepine withdrawal: 08/27 and continued 08/28 placed on AWSS with ativan symptomatic dosing, but will not prescribe scheduled medications for this patient, once more o rganized will discuss outpatient D&A services 08/28 -Added gabapentin 300 mg p.o. 3 times daily to target reduction of seizure risk as well as noncontrolled way of addressing anxiety 08/29 -Added seizure precautions but continued medications as above patient has not seen a neurologist in several years the pattern of her seizures does sound like they may be related to benzodiazepine withdrawal we will monitor closely and try to mitigate the risk of withdrawal seizures. (4) Substance-induced anxiety disorder: 08/28 and 08/29 severe anxiety above AWSS and ativan scored dosing, may be due to benzo withdrawal, opiate withdrawal, elevated/irritable mood, and psychosis, but could be underlying primary anxiety disorder as well. Will add gabapentin 300mg po tid to target anxiety with non-controlled med that will not risk further elevated mood states, and reassess once her mood is more stable if this is best option. Will watch for sedation given risperdal gabapentin, scored dosing of ativan. Inventory Assets Strengths: in a safe environmnet, willing to take medications Needs: further assessment, inatpietn stablization, aftercare, identification of supports Risk Factors Assessment Male: No : Yes Mental Health Diagnoses: Yes Smoker: Yes Protective Factors Assessment Bahai Beliefs: Yes : No Responsible for Young Children: No Employed: No Interval History Chief Complaint "I think I am feeling a little better". Review of Systems Sleep Information Total Hours of Sleep: 6.5 Meal Information Percent Meal Consumed - Breakfast: 100 Percent Meal Consumed - Lunch: 100 Percent Meal Consumed - Dinner: 100 Subjective Subjective Patient was seen & assessed and interval progress reviewed with nursing and social work. Per that treatment team the patient is appearing to slowly responding to medications as opposed to 100% delusional discussion she now has some moments of nondelusional participation. However she continues to be highly med seeking coming to the nursing station inquiring about benzodiazepines and medications to help her. She did score on the a was yesterday receiving 1 mg of Ativan but otherwise has not received benzodiazepines in the last 24 hours. She did take Risperdal a total of 2 mg yesterday and 0.5 as needed today. She did take gabapentin 2 doses of 300 mg yesterday. She had clonidine 0.1 mg x 1. Her friend Severiano did bring her belongings in. She did shower and call her escoto bondsman named Kit to let him know she could not go to her hearing in with [place] due to mental health admission. Later in the day she wanted to call a naval designer and [place] due to concerns about her family squandering her out of property or estate. She continues to struggle giving history she is states she has been in treatment before for her mood possibly taking Depakote. Then she goes on to state that she has a seizure disorder that started at 24 (of note she previously started on methadone and Xanax around that same time) she has not been on antiseizure medicines for some time and states her last seizure was when she was in [facility]. I attempted to understand if seizures correlate with when she is off of benzodiazepines abruptly but she could not tolerate this conversation and shouted "now I have a seizure disorder." I have reassured her that we are monitoring and slowly tapering the benzodiazepines to reduce risk of seizure as well as recently placing her on gabapentin to both reduce risk of seizure, treat anxiety and possibly modulate her pain. She seems displeased with that and continues to focus on needing Klonopin or Xanax. I have reassured her many times that we will not be prescribing those medications at this hospitalization. I attempted to ask patient how she is feeling physically she jumps to delusional thoughts about being eaten from the inside out and escalates in an angry tone that this provider does not seem to understand. She does state her bowels are still loose but not as bad as they were yesterday. She states I need to be admitted medically because I am dehydrated. I encouraged her to continue to drink oral fluids and as long as she is able to do that that her medical care can be handled here on the unit with close monitoring to include the frequent vital signs she is getting. She seems reassured She denies feeling paranoid here or fearful with the staff or other patients. She denies having side effects to the gabapentin or Risperdal her complaint is "you are not giving me enough medications." Physical Exam Psychiatric Orientation: alert and oriented x 3 Apperance: appropriately dressed and appropriately groomed Eye Contact: good eye contact Motor Behavior: steady gait and station and no abnormal motor movements; n EPS Speech: normal rate/rhythm/volume of speech Intense tone that is calm at first but insistent and then becomes quickly labile and angry and then again returns to calm quickly Affect: + labile affect (Labile between calm and upset to insistent back to calm) and + irritable affect Mood: + irritable mood Thought process goes from clear and coherent too quickly delusional and at times tangential Thought Content: + paranoid and + delusions Patient continues to believe that she is possessed and being in from the inside out, at times worries her family is and other times states they are stealing from her Suicidal Thoughts: denies suicidal thoughts Homicidal Thoughts: denies homicidal thoughts Hallucinations: no auditory hallucinations and no visual hallucinations Limited attention as she jumps from topic to topic at times, memory is poor as she is having a hard time putting details of the recent past together Estimated Intelligence: average estimated intelligence Insight: + poor insight Judgement: + poor judgement Vital Signs (Past 24 Hours) Last Vital Signs Temp 36.4 C L 08/29/20 16:15 Pulse 88 08/29/20 16:15 Resp 18 08/29/20 16:15 BP 121/81 08/29/20 16:15 Pulse Ox 98 08/29/20 16:15 Results & Data ([facility]) Current Inpatient Medications Current Inpatient Medications: Current Inpatient Medications Acetaminophen (Acetaminophen 325 Mg Tab) 650 mg PO Q4H PRN PRN Reason: Headache or Minor Fever Stop: 09/25/20 23:39 Last Admin: 08/28/20 21:25 Dose: 650 mg Documented by: Al Hydrox/Mg Hydrox/Simethicone (Aluminum/Magnesium Susp 30 Ml Udc) 30 ml PO Q4H PRN PRN Reason: GI Upset Stop: 09/25/20 23:39 Last Admin: 08/28/20 10:25 Dose: 30 ml Documented by: Bismuth Subsalicylate (Bismuth Subsalicylate Liqd 236 Ml) 15 ml PO PRN PRN PRN Reason: Loose Stool Stop: 09/25/20 23:39 Clonidine HCl (Clonidine Hcl 0.1 Mg Tab) 0.1 mg PO Q2H PRN PRN Reason: For any 2 symptoms Stop: 09/27/20 13:07 Last Admin: 08/29/20 15:36 Dose: 0.1 mg Documented by: Diphenoxylate HCl/Atropine (Diphenoxylate/Atropine 2.5/0.025mg Tab) 1 tab PO Q4H PRN PRN Reason: Abdomincal cramping/diarrhea Stop: 09/27/20 13:07 Last Admin: 08/29/20 10:17 Dose: 1 tab Documented by: Gabapentin (Gabapentin 300 Mg Cap) 300 mg PO TID YANELIS Stop: 09/27/20 13:59 Last Admin: 08/29/20 13:27 Dose: 300 mg Documented by: Hydroxyzine HCl (Hydroxyzine Hcl 25 Mg Tab) 50 mg PO HSZ PRN PRN Reason: Insomnia Stop: 09/25/20 23:39 Last Admin: 08/28/20 21:14 Dose: 50 mg Documented by: Hydroxyzine HCl (Hydroxyzine Hcl 25 Mg Tab) 25 mg PO Q4H PRN PRN Reason: Anxiety Stop: 09/25/20 23:39 Last Admin: 08/29/20 15:44 Dose: 25 mg Documented by: Lorazepam (Lorazepam 1 Mg Tab) 1 - 3 mg PO UD PRN; Protocol PRN Reason: EtoH Withdrawal AWSS 6-10+ Stop: 09/26/20 12:26 Last Admin: 08/28/20 17:06 Dose: 1 mg Documented by: Magnesium Hydroxide (Magnesium Hydroxide Susp 30 Ml Udc) 30 ml PO DAILY PRN PRN Reason: Constipation Stop: 09/25/20 23:39 Risperidone (Risperidone Odt 0.5 Mg Soltab) 0.5 mg PO Q6H PRN PRN Reason: Anxiety/Agitation/psychosis Stop: 09/26/20 08:59 Last Admin: 08/29/20 16:26 Dose: 0.5 mg Documented by: Risperidone (Risperidone Odt 1mg) 1 mg PO TID YANELIS Stop: 09/27/20 14:14 Last Admin: 08/29/20 13:27 Dose: 1 mg Documented by: Sodium Chloride (Sodium Chloride 0.65% Na Soln 45 Ml ([place])) 1 - 2 sprays NA PRN PRN PRN Reason: Nasal Dryness/Congestion Stop: 09/25/20 23:39 Mental Health & Subst Abuse Tx Therapist Name of Therapist: None Emergency Worker Name of Emergency Worker: None (1) Psychosis Psychosis type: unspecified psychosis type Qualified Code(s): F29 - Unsp ecified psychosis not due to a substance or known physiological condition
[2020-08-29] MEDS: ACETAMINOPHEN 325 MG TAB PO PRN (19:48)
[2020-08-30] MEDS: GABAPENTIN 300 MG CAP PO SCH ×3 (09:26→22:02)
[2020-08-30] MEDS: DIPHENOXYLATE/ATROPINE 2.5/0.025MG TAB PO PRN (10:13)
[2020-08-30] MEDS: risperiDONE ODT 0.5 MG SOLTAB PO PRN (11:28)
[2020-08-30 12:23] LABS: 7-Aminoclonaz, Confirm NEGATIVE ng/mL (<25); Hydro-Alp Ur, GC/MS 106 ng/mL (<25); Hydroxyethylflurazepam, Conf NEGATIVE ng/mL (<50); Hydroxymidazolam Ur, GC/MS NEGATIVE ng/mL (<50); Hydroxytriazolam NEGATIVE ng/mL (<50); Lorazepam, Ur GC/MS NEGATIVE ng/mL (<50); Nordiazepam, Confirm NEGATIVE ng/mL (<50); Oxazepam Ur, GC/MS NEGATIVE ng/mL (<50); Temazepam, Confirm NEGATIVE ng/mL (<50)
--- NOTE | 2020-08-30 13:35 | Psychiatric Progress Note ---
Date of Service August 30, 2020 Impression / Recommendations Impression The patient is a 45yo female with current psychosis and likely tomas given at time of admission on 08/27 reported poor sleep, and pressured speech and flight of ideas with paranoid delusional based ideation that she is being stalked , but also that she is posessed by evil and being eaten from the inside out. 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 INpatient is least restrictive and most appropriate setting for care while we stablize her mood and thought disorder, establish medication regimen, obtain further collateral and identify any additional stressors (e.g. legal concerns) and supports, and arrange aftercare in/near a community where she lives. (1) Psychosis: 08/27 and 08/28 - inpatient is lease restrictive and most appropriate setting for care given so severely psychotic could not function in community to care for self, 302 ends 08/31/20 evening - Risperdal 1mg po bid with 0.5mg q6h prn agitation/psychosis - reality testing, and overtime involvement [facility] as she improves 08/29 -Increased Risperdal to 1 mg p.o. 3 times daily, I did consider adding a secondary mood stabilizer but given that she is on the clonidine withdrawal protocol and we added gabapentin I will hold at this time 08/30 -The patient continues to voice a systematized delusional belief that the devil ("or somebody") keeps attempting to eviscerate her during the night. She insists that sometimes this actually does happen, and for that reason she stays awake and on guard. However, at the same time, she tells me that she wishes she could sleep and is distressed because she is not able to sleep. The patient has difficulty reconciling this apparent contradiction. When it was felt back to her that the nursing staff says that, for example, she slept 5-1/2 hours last night, she asserted that she had not slept at all and that she is aware when the nurses check on her, but she just keeps her eyes closed. I advised her that should this happen in the future she should open her eyes and say "I am awake." -Patient worsened she has a history of favorable response to zolpidem 10 mg at bedtime for sleep, and I advised her that this would not be a long-term medication but that we could use it temporarily while we are seeking stabilization. Zolpidem 10 mg at bedtime as needed for sleep was prescribed. -The patient indicates that she feels that risperidone has been helpful to her with her anxiety. It does not seem to have made any significant difference in her delusional beliefs which are systematized and firmly held today. Also, today the patient has reference to the belief that her late cousin, a man who committed suicide by laying on railroad tracks, comes to her at night, sits by her bed, and talks to her. She says that she hears them say things such as "I cannot hear the railroad tracks anymore." -The plan is to continue risperidone 1 mg 3 times a day. I have discontinued risperidone 0.5 mg as needed for anxiety and will offer the patient a trial of quetiapine 25 mg every 4 hours as needed anxiety (related to psychosis). She will be reassessed for this tomorrow. (2) Opiate withdrawal: 08/27 suspected, confirmed by further history and obvious sx 08/28 placed on clonidine/lomotil protocol,. when more organized will discuss D&A services and aftercare 08/30 -It does not currently appear that the patient is experiencing opioid withdrawal. She protest that she does not use opioids and never has. 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 However her toxicology screen admission was not positive for opioids. We will continue to monitor. (3) Benzodiazepine withdrawal: 08/27 and continued 08/28 placed on AWSS with ativan symptomatic dosing, but will not prescribe scheduled medications for this patient, once more organized will discuss outpatient D&A services 08/28 -Added gabapentin 300 mg p.o. 3 times daily to target reduction of seizure risk as well as noncontrolled way of addressing anxiety 08/29 -Added seizure precautions but continued medications as above patient has not seen a neurologist in several years the pattern of her seizures does sound like they may be related to benzodiazepine withdrawal we will monitor closely and try to mitigate the risk of withdrawal seizures. (4) Substance-induced anxiety disorder: 08/28 and 08/29 severe anxiety above AWSS and ativan scored dosing, may be due to benzo withdrawal, opiate withdrawal, elevated/irritable mood, and psychosis, but could be underlying primary anxiety disorder as well. Will add gabapentin 300mg po tid to target anxiety with non-controlled med that will not risk further elevated mood states, and reassess once her mood is more stable if this is best option. Will watch for sedation given risperdal gabapentin, scored dosing of ativan. 08/30 -Patient is no longer scoring on the AWSS such that lorazepam is required. However, the patient continues to be drug-seeking and, specifically, is regularly seeking benzodiazepines. She tells us today that she has "no idea" why lab testing and admission showed that she had recently taken Xanax and explains, "I didn't pop a Xanax." However, the patient reports that she has been taking various benzodiazepines since she was about 18 years old. I reminded her that she had recently been incarcerated in another state and would not have been taking benzodiazepines while in correction. She confirmed that she was not taking benzodiazepines after she was confronted with the report that there is no evidence in the state database (PDMP) that she had recently been prescribed benzodiazepines in [place] or in other [facility], including [place] (where she reportedly was incarcerated). -When told that she would not be prescribed benzodiazepines for anxiety, the patient said that she understood, but then told me that she has "seizures" and used to take phenobarbital which is calm according the patient, "the only thing" that helps with her seizures. The patient says that she had an unwitnessed seizure last night that involved her head tilting back, her neck feeling stiff, and her eyes rolling up in her head. She did not lose consciousness, and did not lose bowel or bladder function. I advised the patient that it is possible that she had a dystonic reaction and that I would order medications that she could take should she have a similar episode at another time during the hospital stay. Inventory Assets Strengths: in a safe environmnet, willing to take medications Needs: further assessment, inpatient stabilization, aftercare, identification of supports Risk Factors Assessment Male: No : Yes Do You Have Access To A Gun?: No Health Problems: No Mental Health Diagnoses: Yes Substance Use Disorders: Yes Previous Attempt: Yes Previous Attempt; Highly Lethal: No Previous Attempt; Planned: No Previous Attempt; Didn't Tell Anyone: No Family History of Suicide: Yes Previous Psychiatric Hospitalization: Yes Hopelessness: No Smoker: Yes Protective Factors Assessment Temple Beliefs: Yes : No Responsible for Young Children: No Employed: No Stable Relationships: No Supportive Family: Yes (Patient indicates that her family is supportive. ) Good Rapport with Provider: No Absence of Any Risk Factors Above: No Interval History Chief Complaint "I would like some Ativan. I feel numb inside" Review of Systems Sleep Information Total Hours of Sleep: 5.5 Meal Information Percent Meal Consumed - Breakfast: 50 Percent Meal Consumed - Lunch: 100 Percent Meal Consumed - Dinner: 100 Subjective Subjective Patient was seen & assessed and interval progress reviewed with treatment team. I met with the patient individually in order to assess her current mental status, evaluate her response to treatment, make any necessary changes in the patient's treatment regimen and coordination with the patient, and address questions issues and concerns that may arise. As above, the patient began i mmediately by telling me that she would like me to prescribe a benzodiazepine, and as that she has been taking "benzos" since she was 18 because those of the medications "[she needs]". When I explained that we would be disinclined to give her benzodiazepines given her history of substance misuse the patient strongly denied that she has ever misused chemical substances. When I told her that her tox screen at admission was positive for alprazolam ("Xanax") and that the state database does not indicate that she has been prescribed alprazolam, the patient indicated that she was puzzled by this because she has not taken any Xanax, or as she reported, "I have not popped a Xanax." When she was informed that I did not dispose to prescribe a benzodiazepine she began telling me that she has a history of seizures and that the only thing that works" is "phenobarbital." I explained that phenobarbital also has an abuse potential, is habit-forming, and can have complicated withdrawal. I also explained that we typically do not use phenobarbital for seizures anymore after she told me that she was prescribed phenobarbital as a child. She claims that she had a "petit [mal] seizure last evening," but describes torticollis and a brief oculogyric crisis which reportedly was not observed. The patient also had reference to needing "IV morphine" because of abdominal pain. The patient's main psychiatric complaint today has to do with poor sleep. She claims that she is not sleeping "at all," and that she is laying awake because "they are taking out my insides and then putting them back into a." When asked for clarification, she describes a believe that holds that she is being eviscerated at night, "probably by the devil" if she allows herself to sleep, and then she has that the "devil puts it back where it was." She locates that she is aware of that this is something that might eventually kill her and the idea of this happening is frightening to her. Further, the patient reports that she is regularly hearing the voice of her late cousin, a man who, according the patient, committed suicide while intentionally laying down on the railroad tracks while intoxicated with the intent of being killed by a train. She claims that her late cousin "comes to her" at night, sits by her head bed, she reports that she "sees" a "shadowy figure," and hears his voice saying things such as "I cannot hear the railroad tracks anymore," and" stay away from the railroad tracks." When she was advised that the nursing report indicates that she has been sleeping at least some at night, and that, for example, last night she reportedly slept for about 5-1/2 hours the patient said, "I know they come into the room, but I him awake. I just have my eyes closed." Physical Exam Psychiatric Orientation: alert, oriented x 3 and cooperative Apperance: appropriately dressed and appropriately groomed Eye Contact: + fair eye contact Motor Behavior: steady gait and station and no abnormal motor movements Speech: normal rate/rhythm/volume of speech Affect: + constricted affect "Empty." Thought Process: + tangential thought process Thought Content: + delusions The patient reports that the devil is attempting to, and sometimes exceeds in cutting her open and removing her internal organs in the night if she falls asleep, and then she believes that the devil puts them back. Suicidal Thoughts: denies suicidal thoughts Patient adds that she made a suicide attempt by taking an overdose of imipramine when she was 13 years old during an argument with her mother. She explains that she did not have any intent of actually killing himself, but was angry and took the pills in front of her mother because of the argument. She reports that she has had occasional suicidal thoughts over the years, but has never had any suicidal plan or intent. She also reports that she has not subsequently engaged in any intentional self-injurious behaviors. Homicidal Thoughts: denies homicidal thoughts Patient reports that she does not have any history of causing physical harm to the person or property of others, and notes that she has no Hallucinations: + auditory hallucinations and + visual hallucinations (Probably visual illusions. She describes "seeing" shadowy figures at night) Although the patient initially said that she does not hear things that other people do not hear, later during the assessment the patient spontaneously mentioned that she hears the voice of her late cousin, a man who committed suicide by laying on railroad tracks and allow himself to be run over by a train. She also says that she is sometimes sees a "shadowy" figure that she believes is her late cousin. Cognition: recent memory grossly intact and remote memory grossly intact Estimated Intelligence: average estimated intelligence Insight: + poor insight Judgement: + poor judgement Vital Signs (Past 24 Hours) Last Vital Signs Temp 36.4 C L 08/30/20 10:04 Pulse 106 H 08/30/20 10:04 Resp 16 08/30/20 10:04 BP 113/73 08/30/20 10:04 Pulse Ox 97 08/29/20 20:26 Results & Data ([facility]) Laboratory Results Laboratory Results - last 24 hr 08/26/20 18:55 U OH-Alprazolam Confrm 106 H 7-Amino Clonazepam NEGATIVE Ur Nordiazepam Confirm NEGATIVE U OH-ethylflurazepam NEGATIVE U Lorazepam Cnf GC/MS NEGATIVE U Oxazepam Confm GC/MS NEGATIVE Ur Temazepam Confirm NEGATIVE U OH-Triazolam Confirm NEGATIVE U OH-Midazolam Confirm NEGATIVE Drug Screen Comment SEE NOTE Current Inpatient Medications Current Inpatient Medications: Current Inpatient Medications Acetaminophen (Acetaminophen 325 Mg Tab) 650 mg PO Q4H PRN PRN Reason: Headache or Minor Fever Stop: 09/25/20 23:39 Last Admin: 08/29/20 19:48 Dose: 650 mg Documented by: Al Hydrox/Mg Hydrox/Simethicone (Aluminum/Magnesium Susp 30 Ml Udc) 30 ml PO Q4H PRN PRN Reason: GI Upset Stop: 09/25/20 23:39 Last Admin: 08/28/20 10:25 Dose: 30 ml Documented by: Bismuth Subsalicylate (Bismuth Subsalicylate Liqd 236 Ml) 15 ml PO PRN PRN PRN Reason: Loose Stool Stop: 09/25/20 23:39 Clonidine HCl (Clonidine Hcl 0.1 Mg Tab) 0.1 mg PO Q2H PRN PRN Reason: For any 2 symptoms Stop: 09/27/20 13:07 Last Admin: 08/29/20 21:18 Dose: 0.1 mg Documented by: Diphenoxylate HCl/Atropine (Diphenoxylate/Atropine 2.5/0.025mg Tab) 1 tab PO Q4H PRN PRN Reason: Abdomincal cramping/diarrhea Stop: 09/27/20 13:07 Last Admin: 08/30/20 10:13 Dose: 1 tab Documented by: Gabapentin (Gabapentin 300 Mg Cap) 300 mg PO TID YANELIS Stop: 09/27/20 13:59 Last Admin: 08/30/20 09:26 Dose: 300 mg Documented by: Hydroxyzine HCl (Hydroxyzine Hcl 25 Mg Tab) 50 mg PO HSZ PRN PRN Reason: Insomnia Stop: 09/25/20 23:39 Last Admin: 08/29/20 23:21 Dose: 50 mg Documented by: Hydroxyzine HCl (Hydroxyzine Hcl 25 Mg Tab) 25 mg PO Q4H PRN PRN Reason: Anxiety Stop: 09/25/20 23:39 Last Admin: 08/29/20 21:18 Dose: 25 mg Documented by: Lorazepam (Lorazepam 1 Mg Tab) 1 - 3 mg PO UD PRN; Protocol PRN Reason: EtoH Withdrawal AWSS 6-10+ Stop: 09/26/20 12:26 Last Admin: 08/28/20 17:06 Dose: 1 mg Documented by: Magnesium Hydroxide (Magnesium Hydroxide Susp 30 Ml Udc) 30 ml PO DAILY PRN PRN Reason: Constipation Stop: 09/25/20 23:39 Risperidone (Risperidone Odt 0.5 Mg Soltab) 0.5 mg PO Q6H PRN PRN Reason: Anxiety/Agitation/psychosis Stop: 09/26/20 08:59 Last Admin: 08/30/20 11:28 Dose: 0.5 mg Documented by: Risperidone (Risperidone Odt 1mg) 1 mg PO TID YANELIS Stop: 09/27/20 14:14 Last Admin: 08/30/20 09:25 Dose: 1 mg Documented by: Sodium Chloride (Sodium Chloride 0.65% Na Soln 45 Ml (Page)) 1 - 2 sprays NA PRN PRN PRN Reason: Nasal Dryness/Congestion Stop: 09/25/20 23:39 Mental Health & Subst Abuse Tx Therapist Name of Therapist: None Zipper Ironer Name of Zipper Ironer: None (1) Psychosis Psychosis type: unspecified psychosis type Qualified Code(s): F29 - Unspecified psychosis not due to a substance or known physiological condition
[2020-08-30] MEDS ORDERED: QUEtiapine FUMARATE 25 MG TABLET PO PRN (13:41)
[2020-08-30] MEDS ORDERED: diphenhydrAMINE 50 MG/ML VIAL IM PRN (14:08)
[2020-08-30] MEDS: cloNIDine HCL 0.1 MG TAB PO PRN (16:39)
[2020-08-30] MEDS: ZOLPIDEM TARTRATE 10 MG TAB PO PRN (22:02)
[2020-08-31] MEDS: GABAPENTIN 300 MG CAP PO SCH ×3 (09:07→21:06)
--- NOTE | 2020-08-31 10:03 | Psychiatric Progress Note ---
Date of Service August 31, 2020 Impression / Recommendations Impression The patient is a 45yo female with current psychosis and likely tomas given at time of admission on 08/27 reported poor sleep, and pressured speech and flight of ideas with paranoid delusional based ideation that she is being stalked , but also that she is posessed by evil and being eaten from the inside out. 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 INpatient is least restrictive and most appropriate setting for care while we stablize her mood and thought disorder, establish medication regimen, obtain further collateral and identify any additional stressors (e.g. legal concerns) and supports, and arrange aftercare in/near a community where she lives. (1) Psychosis: 08/27 and 08/28 - inpatient is lease restrictive and most appropriate setting for care given so severely psychotic could not function in community to care for self, 302 ends 08/31/20 evening - Risperdal 1mg po bid with 0.5mg q6h prn agitation/psychosis - reality testing, and [facility] as she improves 08/29 -Increased Risperdal to 1 mg p.o. 3 times daily, I did consider adding a secondary mood stabilizer but given that she is on the clonidine withdrawal protocol and we added gabapentin I will hold at this time 08/30 -The patient continues to voice a systematized delusional belief that the devil ("or somebody") keeps attempting to eviscerate her during the night. She insists that sometimes this actually does happen, and for that reason she stays awake and on guard. However, at the same time, she tells me that she wishes she could sleep and is distressed because she is not able to sleep. The patient has difficulty reconciling this apparent contradiction. When it was felt back to her that the nursing staff says that, for example, she slept 5-1/2 hours last night, she asserted that she had not slept at all and that she is aware when the nurses check on her, but she just keeps her eyes closed. I advised her that should this happen in the future she should open her eyes and say "I am awake." -Patient worsened she has a history of favorable response to zolpidem 10 mg at bedtime for sleep, and I advised her that this would not be a long-term medication but that we could use it temporarily while we are seeking stabilization. Zolpidem 10 mg at bedtime as needed for sleep was prescribed. -The patient indicates that she feels that risperidone has been helpful to her with her anxiety. It does not seem to have made any significant difference in her delusional beliefs which are systematized and firmly held today. Also, today the patient has reference to the belief that her late cousin, a man who committed suicide by laying on railroad tracks, comes to her at night, sits by her bed, and talks to her. She says that she hears them say things such as "I cannot hear the railroad tracks anymore." -The plan is to continue risperidone 1 mg 3 times a day. I have discontinued risperidone 0.5 mg as needed for anxiety and will offer the patient a trial of quetiapine 25 mg every 4 hours as needed anxiety (related to psychosis). She will be reassessed for this tomorrow. 08/31 -Patient notes that she did sleep better last night. She had an episode last evening where when she informed the nurses that her neck felt stiff, and she appeared to be possibly voluntarily rolling her eyes towards the back of her head. The patient recalled what I had told her yesterday about the possibility of a dystonic reaction, and she was given diphenhydramine 25 mg IM. The patient said that she felt "better," and slept. The patient also reports that Ambien 10 mg at bedtime was helpful in inducing sleep, although she still says that she is not sleeping quite as much as she would like to. Also, as noted above, the patient reports that she feels the quetiapine 25 mg every 4 hours as needed for anxiety or psychosis has been somewhat more helpful than risperidone as needed for the same complaint, but notes that both are helpful. The patient reports that she has previously taken significantly higher dosages of quetiapine and we discussed increasing the dose of her as needed quetiapine to a dose of 50 mg every 4 hours as needed for anxiety or psychosis. For now, we will also plan to continue standing dose of risperidone, but the dose of risperidone today has been increased to a dose of 2 mg twice a day from a dose of 1 mg 3 times a day. An option will be to substitute standing dose quetiapine for risperidone once the patient is more stable. -Patient is scheduled for 303 hearing this morning. I explained the purpose of the hearing to her, explained her rights, and provided her with an opportunity to ask questions. The patient replied that she would like to be discharged "today if possible." Accordingly, we will proceed with 303 hearing. (2) Opiate withdrawal: 08/27 suspected, confirmed by further history and obvious sx 08/28 placed on clonidine/lomotil protocol,. when more organized will discuss D&A services and aftercare 08/30 -It does not currently appear that the patient is experiencing opioid withdrawal. She protest that she does not use opioids and never has. 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 However her toxicology screen admission was not positive for opioids. We will continue to monitor. 08/31 -AWSS Discontinued. No further signs of opioid withdrawal. (3) Benzodiazepine withdrawal: 08/27 and continued 08/28 placed on AWSS with ativan symptomatic dosing, but will not prescribe scheduled medications for this patient, once more organized will discuss outpatient D&A services 08/28 -Added gabapentin 300 mg p.o. 3 times daily to target reduction of seizure risk as well as noncontrolled way of addressing anxiety 08/29 -Added seizure precautions but continued medications as above patient has not seen a neurologist in several years the pattern of her seizures does sound like they may be related to benzodiazepine withdrawal we will monitor closely and try to mitigate the risk of withdrawal seizures. 08/31 -AWSS Discontinued. No physical signs of benzodiazepine withdrawal currently. Patient continues to report anxiety. (4) Substance-induced anxiety disorder: 08/28 and 08/29 severe anxiety above AWSS and ativan scored dosing, may be due to benzo withdrawal, opiate withdrawal, elevated/irritable mood, and psychosis, but could be underlying primary anxiety disorder as well. Will add gabapentin 300mg po tid to target anxiety with non-controlled med that will not risk further elevated mood states, and reassess once her mood is more stable if this is best option. Will watch for sedation given risperdal gabapentin, scored dosing of ativan. 08/30 -Patient is no longer scoring on the AWSS such that lorazepam is required. However, the patient continues to be drug-seeking and, specifically, is regularly seeking benzodiazepines. She tells us today that she has "no idea" why lab testing and admission showed that she had recently taken Xanax and explains, "I didn't pop a Xanax." However, the patient reports that she has been taking various benzodiazepines since she was about 18 years old. I reminded her that she had recently been incarcerated in another state and would not have been taking benzodiazepines while in assisted. She confirmed that she was not taking benzodiazepines after she was confronted with the report that there is no evidence in the state database (PDMP) that she had recently been prescribed benzodiazepines in [place] or in other [facility], including [place] (where she reportedly was incarcerated). -When told that she would not be prescribed benzodiazepines for anxiety, the patient said that she understood, but then told me that she has "seizures" and used to take phenobarbital which is calm according the patient, "the only thing" that helps with her seizures. The patient says that she had an unwitnessed seizure last night that involved her head tilting back, her neck feeling stiff, and her eyes rolling up in her head. She did not lose consciousness, and did not lose bowel or bladder function. I advised the patient that it is possible that she had a dystonic reaction and that I would order medications that she could take should she have a similar episode at another time during the hospital stay. 08/31 -The patient reportedly told a nursing staff member last evening that, in fact, she had been abusing benzodiazepines and, in addition, had been using heroin in the recent past. She also suggested that she may have been using other drugs, including methamphetamine. -She remains anxious. As above, the patient reports that she has responded favorably to the addition of as needed quetiapine, but not to her full satisfaction. Patient does appear anxious, and the dose of quetiapine has been increased from a dose of 25 mg every 4 hours as needed for anxiety/psychosis to quetiapine 50 mg every 4 hours as needed for anxiety or psychosis. The patient indicates that in the past she has taken doses of quetiapine as high as 400 mg a day or higher, so no maximum dose has been specified within the above parameter. Inventory Assets Strengths: in a safe environmnet, willing to take medications Needs: further assessment, inpatient stabilization, aftercare, identification of supports Risk Factors Assessment Male: No : Yes Do You Have Access To A Gun?: No Health Problems: No Mental Health Diagnoses: Yes Substance Use Disorders: Yes Previous Attempt: Yes Previous Attempt; Highly Lethal: No Previous Attempt; Planned: No Previous Attempt; Didn't Tell Anyone: No Family History of Suicide: Yes Previous Psychiatric Hospitalization: Yes Hopelessness: No Smoker: Yes Protective Factors Assessment Protestant Beliefs: Yes : No Responsible for Young Children: No Employed: No Stable Relationships: No Supportive Family: Yes (Patient indicates that her family is supportive. ) Good Rapport with Provider: No Absence of Any Risk Factors Above: No Interval History Chief Complaint "My Head is Loud". Review of Systems Sleep Information Total Hours of Sleep: 6 Meal Information Percent Meal Consumed - Breakfast: 50 Percent Meal Consumed - Lunch: 100 Percent Meal Consumed - Dinner: 100 Subjective Subjective Patient was seen & assessed and interval progress reviewed with treatment team. I met individually with the patient in order to assess her current mental status, evaluate her response to treatment, make any necessary changes in the patient's treatment regimen and coordination with the patient. Several medication changes were made yesterday; namely, Ambien 10 mg at bedtime was added as needed for sleep, her as needed medication for anxiety/psychosis was changed from risperidone to quetiapine 25 mg every 4 hours. The patient reports that she feels that quetiapine was more helpful to her and notes that in the past she has been on significantly higher dosages of quetiapine. Patient also said that she feels that both risperidone and quetiapine are helpful in terms of managing her emotional distress and anxiety, but of the 2 she feels that quetiapine may be more effective, at least in terms of managing her anxiety. The patient made reference to her "head" being "loud." I had some difficulty in determining what the patient meant by that. I asked her if she meant that she was hearing things or getting messages through her head, and she replied in the negative and said that she just meant that it was "like everything is loud. I do not know how to explain it." She continues to express beliefs that she is being eviscerated at night, or at least she is at risk for being eviscerated during the night, with her internal organs reinserted the next day. When asked if she believes that this is possible, and when I pointed out that if, for example, her heart were to be removed from her body, she would not live long enough for it to be reinserted. The patient replied by saying, "I know it it is possible because it is happening." Yesterday, she had suggested that the entity that is attempting to remove and reinsert her internal organs may be a friend or an ex-. Physical Exam Psychiatric Orientation: alert, oriented x 3 and cooperative Apperance: appropriately dressed and appropriately groomed Eye Contact: + fair eye contact Motor Behavior: + tremor Speech: normal rate/rhythm/volume of speech Affect: + anxious affect Mood: + anxious mood Thought Process: + perseveration Thought Content: + delusions Suicidal Thoughts: denies suicidal thoughts Homicidal Thoughts: denies homicidal thoughts Hallucinations: + auditory hallucinations The voice of her late cousin. Cognition: remote memory grossly intact and language grossly intact; + recent memory not intact Estimated Intelligence: average estimated intelligence Insight: + poor insight Judgement: + poor judgement Vital Signs (Past 24 Hours) Last Vital Signs Temp 36.7 C 08/31/20 06:00 Pulse 62 08/31/20 06:00 Resp 16 08/31/20 06:00 BP 135/86 08/31/20 06:00 Pulse Ox 97 08/29/20 20:26 Results & Data ([facility]) Laboratory Results Laboratory Results - last 24 hr 08/26/20 18:55 U OH-Alprazolam Confrm 106 H 7-Amino Clonazepam NEGATIVE Ur Nordiazepam Confirm NEGATIVE U OH-ethylflurazepam NEGATIVE U Lorazepam Cnf GC/MS NEGATIVE U Oxazepam Confm GC/MS NEGATIVE Ur Temazepam Confirm NEGATIVE U OH-Triazolam Confirm NEGATIVE U OH-Midazolam Confirm NEGATIVE Drug Screen Comment SEE NOTE Current Inpatient Medications Current Inpatient Medications: Current Inpatient Medications Acetaminophen (Acetaminophen 325 Mg Tab) 650 mg PO Q4H PRN PRN Reason: Headache or Minor Fever Stop: 09/25/20 23:39 Last Admin: 08/29/20 19:48 Dose: 650 mg Documented by: Al Hydrox/Mg Hydrox/Simethicone (Aluminum/Magnesium Susp 30 Ml Udc) 30 ml PO Q4H PRN PRN Reason: GI Upset Stop: 09/25/20 23:39 Last Admin: 08/28/20 10:25 Dose: 30 ml Documented by: Bismuth Subsalicylate (Bismuth Subsalicylate Liqd 236 Ml) 15 ml PO PRN PRN PRN Reason: Loose Stool Stop: 09/25/20 23:39 Clonidine HCl (Clonidine Hcl 0.1 Mg Tab) 0.1 mg PO Q2H PRN PRN Reason: For any 2 symptoms Stop: 09/27/20 13:07 Last Admin: 08/30/20 16:39 Dose: 0.1 mg Documented by: Diphenhydramine HCl (Diphenhydramine 50 Mg/Ml Vial) 25 mg IM Q6H PRN PRN Reason: Dystonic Reaction Stop: 09/29/20 14:07 Last Admin: 08/30/20 20:30 Dose: 25 mg Documented by: Diphenoxylate HCl/Atropine (Diphenoxylate/Atropine 2.5/0.025mg Tab) 1 tab PO Q4H PRN PRN Reason: Abdomincal cramping/diarrhea Stop: 09/27/20 13:07 Last Admin: 08/30/20 10:13 Dose: 1 tab Documented by: Gabapentin (Gabapentin 300 Mg Cap) 300 mg PO TID [facility] Stop: 09/27/20 13:59 Last Admin: 08/31/20 09:07 Dose: 300 mg Documented by: Hydroxyzine HCl (Hydroxyzine Hcl 25 Mg Tab) 50 mg PO HSZ PRN PRN Reason: Insomnia Stop: 09/25/20 23:39 Last Admin: 08/29/20 23:21 Dose: 50 mg Documented by: Hydroxyzine HCl (Hydroxyzine Hcl 25 Mg Tab) 25 mg PO Q4H PRN PRN Reason: Anxiety Stop: 09/25/20 23:39 Last Admin: 08/29/20 21:18 Dose: 25 mg Documented by: Lorazepam (Lorazepam 1 Mg Tab) 1 - 3 mg PO UD PRN; Protocol PRN Reason: EtoH Withdrawal AWSS 6-10+ Stop: 09/26/20 12:26 Last Admin: 08/28/20 17:06 Dose: 1 mg Documented by: Magnesium Hydroxide (Magnesium Hydroxide Susp 30 Ml Udc) 30 ml PO DAILY PRN PRN Reason: Constipation Stop: 09/25/20 23:39 Quetiapine Fumarate (Quetiapine Fumarate 25 Mg Tablet) 50 mg PO Q4H PRN PRN Reason: Anxiety/Psychosis Stop: 09/30/20 09:44 Risperidone (Risperidone 2 Mg Tablet) 2 mg PO BID [facility] Stop: 09/30/20 09:59 Sodium Chloride (Sodium Chloride 0.65% Na Soln 45 Ml ([place])) 1 - 2 sprays NA PRN PRN PRN Reason: Nasal Dryness/Congestion Stop: 09/25/20 23:39 Zolpidem Tartrate (Zolpidem Tartrate 10 Mg Tab) 10 mg PO HS PRN PRN Reason: Sleep Stop: 09/29/20 13:40 Last Admin: 08/30/20 22:02 Dose: 10 mg Documented by: Mental Health & Subst Abuse Tx Therapist Name of Therapist: None Lan Analyst Name of Lan Analyst: None (1) Psychosis Psychosis type: unspecified psychosis type Qualified Code(s): F29 - Unspecified psychosis not due to a substance or known physiological condition
[2020-08-31] MEDS: risperiDONE 2 MG TABLET PO SCH ×2 (10:18→21:06)
[2020-08-31] MEDS: QUEtiapine FUMARATE 25 MG TABLET PO PRN ×3 (10:28→21:56)
[2020-08-31] MEDS ORDERED: diphenhydrAMINE Capsule 25 MG CAP PO STA (12:11)
[2020-08-31] MEDS: ACETAMINOPHEN 325 MG TAB PO PRN ×2 (13:08→18:15)
[2020-08-31] MEDS: diphenhydrAMINE Capsule 25 MG CAP PO PRN (17:22)
[2020-08-31] MEDS: ZOLPIDEM TARTRATE 10 MG TAB PO PRN (21:05)
[2020-09-01] MEDS: GABAPENTIN 300 MG CAP PO SCH ×3 (08:35→20:36)
[2020-09-01] MEDS: risperiDONE 2 MG TABLET PO SCH ×2 (08:35→20:37)
--- NOTE | 2020-09-01 10:45 | Psychiatric Progress Note ---
Date of Service September 01, 2020 Impression / Recommendations Impression The patient is a 45yo female with current psychosis and likely tomas given at time of admission on 08/27 reported poor sleep, and pressured speech and flight of ideas with paranoid delusional based ideation that she is being stalked , but also that she is posessed by evil and being eaten from the inside out. 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 INpatient is least restrictive and most appropriate setting for care while we stablize her mood and thought disorder, establish medication regimen, obtain further collateral and identify any additional stressors (e.g. legal concerns) and supports, and arrange aftercare in/near a community where she lives. (1) Psychosis: 08/27 and 08/28 - inpatient is lease restrictive and most appropriate setting for care given so severely psychotic could not function in community to care for self, 302 ends 08/31/20 evening - Risperdal 1mg po bid with 0.5mg q6h prn agitation/psychosis - reality testing, and overtime involvement in [facility] as she improves 08/29 -Increased Risperdal to 1 mg p.o. 3 times daily, I did consider adding a secondary mood stabilizer but given that she is on the clonidine withdrawal protocol and we added gabapentin I will hold at this time 08/30 -The patient continues to voice a systematized delusional belief that the devil ("or somebody") keeps attempting to eviscerate her during the night. She insists that sometimes this actually does happen, and for that reason she stays awake and on guard. However, at the same time, she tells me that she wishes she could sleep and is distressed because she is not able to sleep. The patient has difficulty reconciling this apparent contradiction. When it was felt back to her that the nursing staff says that, for example, she slept 5-1/2 hours last night, she asserted that she had not slept at all and that she is aware when the nurses check on her, but she just keeps her eyes closed. I advised her that should this happen in the future she should open her eyes and say "I am awake." -Patient worsened she has a history of favorable response to zolpidem 10 mg at bedtime for sleep, and I advised her that this would not be a long-term medication but that we could use it temporarily while we are seeking stabilization. Zolpidem 10 mg at bedtime as needed for sleep was prescribed. -The patient indicates that she feels that risperidone has been helpful to her with her anxiety. It does not seem to have made any significant difference in her delusional beliefs which are systematized and firmly held today. Also, today the patient has reference to the belief that her late cousin, a man who committed suicide by laying on railroad tracks, comes to her at night, sits by her bed, and talks to her. She says that she hears them say things such as "I cannot hear the railroad tracks anymore." -The plan is to continue risperidone 1 mg 3 times a day. I have discontinued risperidone 0.5 mg as needed for anxiety and will offer the patient a trial of quetiapine 25 mg every 4 hours as needed anxiety (related to psychosis). She will be reassessed for this tomorrow. 08/31 -Patient notes that she did sleep better last night. She had an episode last evening where when she informed the nurses that her neck felt stiff, and she appeared to be possibly voluntarily rolling her eyes towards the back of her head. The patient recalled what I had told her yesterday about the possibility of a dystonic reaction, and she was given diphenhydramine 25 mg IM. The patient said that she felt "better," and slept. The patient also reports that Ambien 10 mg at bedtime was helpful in inducing sleep, although she still says that she is not sleeping quite as much as she would like to. Also, as noted above, the patient reports that she feels the quetiapine 25 mg every 4 hours as needed for anxiety or psychosis has been somewhat more helpful than risperidone as needed for the same complaint, but notes that both are helpful. The patient reports that she has previously taken significantly higher dosages of quetiapine and we discussed increasing the dose of her as needed quetiapine to a dose of 50 mg every 4 hours as needed for anxiety or psychosis. For now, we will also plan to continue standing dose of risperidone, but the dose of risperidone today has been increased to a dose of 2 mg twice a day from a dose of 1 mg 3 times a day. An option will be to substitute standing dose quetiapine for risperidone once the patient is more stable. -Patient is scheduled for 303 hearing this morning. I explained the purpose of the hearing to her, explained her rights, and provided her with an opportunity to ask questions. The patient replied that she would like to be discharged "today if possible." Accordingly, we will proceed with 303 hearing. 09/01 -Psychosis unresolved however she does appear to be demonstrating some modest improvement in insight and thought organization with some tincture of time on Risperdal. Based on conversation today, I am not confident in her ability to appropriately comply with antipsychotic oral treatment regimen on an outpatient basis and discussed consideration for conversion to Risperdal Consta prior to discharge and she did express willingness for the long-acting injectable. -increase prn seroquel as below (2) Opiate withdrawal: 08/27 suspected, confirmed by further history and obvious sx 08/28 placed on clonidine/lomotil protocol,. when more organized will discuss D&A services and aftercare 08/30 -It does not currently appear that the patient is experiencing opioid withdrawal. She protest that she does not use opioids and never has. The patient is not considered a reliable first helper. However her toxicology screen admission was not positive for opioids. We will continue to monitor. 08/31 -AWSS Discontinued. No further signs of opioid withdrawal. 09/01 -VSS (3) Benzodiazepine withdrawal: 08/27 and continued 08/28 placed on AWSS with ativan symptomatic dosing, but will not prescribe scheduled medications for this patient, once more organized will discuss outpatient D&A services 08/28 -Added gabapentin 300 mg p.o. 3 times daily to target reduction of seizure risk as well as noncontrolled way of addressing anxiety 08/29 -Added seizure precautions but continued medications as above patient has not seen a neurologist in several years the pattern of her seizures does sound like they may be related to benzodiazepine withdrawal we will monitor closely and try to mitigate the risk of withdrawal seizures. 08/31 -AWSS Discontinued. No physical signs of benzodiazepine withdrawal currently. Patient continues to report anxiety. 09/01 -Declined her request to reinitiate benzodiazepine today and reeducated regarding risks (4) Substance-induced anxiety disorder: 08/28 and 08/29 severe anxiety above AWSS and ativan scored dosing, may be due to benzo withdrawal, opiate withdrawal, elevated/irritable mood, and psychosis, but could be underlying primary anxiety disorder as well. Will add gabapentin 300mg po tid to target anxiety with non-controlled med that will not risk further elevated mood states, and reassess once her mood is more stable if this is best option. Will watch for sedation given risperdal gabapentin, scored dosing of ativan. 08/30 -Patient is no longer scoring on the AWSS such that lorazepam is required. However, the patient continues to be drug-seeking and, specifically, is regularly seeking benzodiazepines. She tells us today that she has "no idea" why lab testing and admission showed that she had recently taken Xanax and explains, "I didn't pop a Xanax." However, the patient reports that she has been taking various benzodiazepines since she was about 18 years old. I reminded her that she had recently been incarcerated in another state and would not have been taking benzodiazepines while in [place]. She confirmed that she was not taking benzodiazepines after she was confronted with the report that there is no evidence in the state database (PDMP) that she had recently been prescribed benzodiazepines in [place] or in other [facility], including [place] (where she reportedly was incarcerated). -When told that she would not be prescribed benzodiazepines for anxiety, the patient said that she understood, but then told me that she has "seizures" and used to take phenobarbital which is calm according the patient, "the only thing" that helps with her seizures. The patient says that she had an unwitnessed seizure last night that involved her head tilting back, her neck feeling stiff, and her eyes rolling up in her head. She did not lose consciousness, and did not lose bowel or bladder function. I advised the patient that it is possible that she had a dystonic reaction and that I would order medications that she could take should she have a similar episode at another time during the hospital stay. 08/31 -The patient reportedly told a nursing staff member last evening that, in fact, she had been abusing benzodiazepines and, in addition, had been using heroin in the recent past. She also suggested that she may have been using other drugs, including methamphetamine. -She remains anxious. As above, the patient reports that she has responded favorably to the addition of as needed quetiapine, but not to her full satisfaction. Patient does appear anxious, and the dose of quetiapine has been increased from a dose of 25 mg every 4 hours as needed for anxiety/psychosis to quetiapine 50 mg every 4 hours as needed for anxiety or psychosis. The patient indicates that in the past she has taken doses of quetiapine as high as 400 mg a day or higher, so no maximum dose has been specified within the above parameter. 09/01 -Patient acknowledges a long history of recreational substance abuse and demonstrates severely impaired insight regarding the risks associated with that behavior. She is being referred to [facility] for dual diagnosis f/u -Discussed with patient that antipsychotic polypharmacy is nonpreferred treatment strategy and considered off label. Due to increased abuse risk associated with Seroquel I am uncertain that she would be able to reliably self administer as an outpatient however will continue to utilize on an as needed basis on the inpatient unit for acute anxiety changing dose from 50 mg every 4 hours as needed to a 75 mg every 6 hours as needed today Inventory Assets Strengths: in a safe environmnet, willing to take medications Needs: further assessment, inpatient stabilization, aftercare, identification of supports Risk Factors Assessment Male: No : Yes Do You Have Access To A Gun?: No Health Problems: No Mental Health Diagnoses: Yes Substance Use Disorders: Yes Previous Attempt: Yes Previous Attempt; Highly Lethal: No Previous Attempt; Planned: No Previous Attempt; Didn't Tell Anyone: No Family History of Suicide: Yes Previous Psychiatric Hospitalization: Yes Hopelessness: No Smoker: Yes Protective Factors Assessment Voodoo Beliefs: Yes : No Responsible for Young Children: No Employed: No Stable Relationships: No Supportive Family: Yes (Patient indicates that her family is supportive. ) Good Rapport with Provider: No Absence of Any Risk Factors Above: No Interval History Chief Complaint "I am spiritually sensitive. I feel like there is something bad inside me". Review of Systems Notes denies dystonia Sleep Information Total Hours of Sleep: 6 Meal Information Percent Meal Consumed - Breakfast: 100 Percent Meal Consumed - Lunch: 100 Percent Meal Consumed - Dinner: 100 Subjective Subjective Patient was seen & assessed and interval progress reviewed with treatment team. Patient on 303 commitment as of yesterday. Per staff she has been medication seeking. Received Seroquel as needed dose x3 yesterday. No clonidine as needed's for more than 24 hours and AWSS discontinued. She reportedly has a meeting set up with a friend who is more of an acquaintance tomorrow. Being set up with [facility] and [facility] for outpatient follow-up. Has been compliant with Risperdal. She reports spontaneously this morning that she feels the energy of her ex-boyfriend's mother around her and believes that her ex- boyfriend's mother has been bothering her for 5 years. "She is like a devil worshiper or something." States that she is Taoism but became involved with several worshipers. She states that she feels a little less anxious about this then at time of initial presentation however clearly unresolved. She states that she has long been treated with benzodiazepines and she does not feel right without them. States that she was not abusing benzodiazepines prior to admission. "The only thing I was abusing was Adderall." Seems to believe that stimulant abuse helps her relax and feel less paranoid. Demonstrates very poor insight regarding impact of substance abuse on mental health. She reports no opiate abuse for 2 years. Spontaneously states that she would rather be asleep and feel the way that she feels. Denies suicidal or homicidal ideation or hallucinations this morning. She denies feeling sedated by the Seroquel as needed doses.Patient on 303 commitment as of yesterday. Per staff she has been medication seeking. Received Seroquel as needed dose x3 yesterday. No clonidine as needed's for more than 24 hours and AWSS discontinued. She reportedly has a meeting set up with a friend who is more of an acquaintance tomorrow. Being set up with [facility] and [facility] for outpatient follow-up. Has been compliant with Risperdal. She reports spontaneously this morning that she feels the energy of her ex-boyfriend's mother around her and believes that her ex-boyfriend's mother has been bothering her for 5 years. "She is like a devil worshiper or something." States that she is Taoism but became involved with several worshipers. She states that she feels a little less anxious about this then at time of initial presentation however clearly unresolved. She states that she has long been treated with benzodiazepines and she does not feel right without them. States that she was not abusing benzodiazepines prior to admission. "The only thing I was abusing was Adderall." Seems to believe that stimulant abuse helps her relax and feel less paranoid. Demonstrates very poor insight regarding impact of substance abuse on mental health. She reports no opiate abuse for 2 years. Spontaneously states that she would rather be asleep and feel the way that she feels. Denies suicidal or homicidal ideation or hallucinations this morning. She denies feeling sedated by the Seroquel as needed doses. Physical Exam Psychiatric Orientation: alert and cooperative Apperance: + disheveled Eye Contact: + fair eye contact Motor Behavior: steady gait and station and no abnormal motor movements Speech: normal rate/rhythm/volume of speech Affect: + anxious affect Mood: + anxious mood Thought Process: + thought association not intact Associations at times illogical Thought Content: + delusions Suicidal Thoughts: denies suicidal thoughts Homicidal Thoughts: denies homicidal thoughts Hallucinations: no auditory hallucinations and no visual hallucinations Insight: + severely impaired insight Judgement: + impaired judgement Vital Signs (Past 24 Hours) Last Vital Signs Temp 36.6 C 09/01/20 06:38 Pulse 72 09/01/20 06:38 Resp 19 09/01/20 06:38 BP 127/82 09/01/20 06:38 Pulse Ox 97 08/29/20 20:26 Results & Data ([facility]) Current Inpatient Medications Current Inpatient Medications: Current Inpatient Medications Acetaminophen (Acetaminophen 325 Mg Tab) 650 mg PO Q4H PRN PRN Reason: Headache or Minor Fever Stop: 09/25/20 23:39 Last Admin: 08/31/20 18:15 Dose: 650 mg Documented by: Al Hydrox/Mg Hydrox/Simethicone (Aluminum/Magnesium Susp 30 Ml Udc) 30 ml PO Q4H PRN PRN Reason: GI Upset Stop: 09/25/20 23:39 Last Admin: 08/28/20 10:25 Dose: 30 ml Documented by: Bismuth Subsalicylate (Bismuth Subsalicylate Liqd 236 Ml) 15 ml PO PRN PRN PRN Reason: Loose Stool Stop: 09/25/20 23:39 Clonidine HCl (Clonidine Hcl 0.1 Mg Tab) 0.1 mg PO Q2H PRN PRN Reason: For any 2 symptoms Stop: 09/27/20 13:07 Last Admin: 08/30/20 16:39 Dose: 0.1 mg Documented by: Diphenhydramine HCl (Diphenhydramine 50 Mg/Ml Vial) 25 mg IM Q6H PRN PRN Reason: Dystonic Reaction Stop: 09/29/20 14:07 Last Admin: 08/30/20 20:30 Dose: 25 mg Documented by: Diphenhydramine HCl (Diphenhydramine Capsule 25 Mg Cap) 25 mg PO BID PRN PRN Reason: Neck/muscle stiffness Stop: 09/30/20 12:15 Last Admin: 08/31/20 17:22 Dose: 25 mg Documented by: Diphenoxylate HCl/Atropine (Diphenoxylate/Atropine 2.5/0.025mg Tab) 1 tab PO Q4H PRN PRN Reason: Abdomincal cramping/diarrhea Stop: 09/27/20 13:07 Last Admin: 08/30/20 10:13 Dose: 1 tab Documented by: Gabapentin (Gabapentin 300 Mg Cap) 300 mg PO TID YANELIS Stop: 09/27/20 13:59 Last Admin: 09/01/20 08:35 Dose: 300 mg Documented by: Hydroxyzine HCl (Hydroxyzine Hcl 25 Mg Tab) 50 mg PO HSZ PRN PRN Reason: Insomnia Stop: 09/25/20 23:39 Last Admin: 08/29/20 23:21 Dose: 50 mg Documented by: Hydroxyzine HCl (Hydroxyzine Hcl 25 Mg Tab) 25 mg PO Q4H PRN PRN Reason: Anxiety Stop: 09/25/20 23:39 Last Admin: 08/29/20 21:18 Dose: 25 mg Documented by: Magnesium Hydroxide (Magnesium Hydroxide Susp 30 Ml Udc) 30 ml PO DAILY PRN PRN Reason: Constipation Stop: 09/25/20 23:39 Quetiapine Fumarate (Quetiapine Fumarate 25 Mg Tablet) 50 mg PO Q4H PRN PRN Reason: Anxiety/Psychosis Stop: 09/30/20 09:44 Last Admin: 08/31/20 21:56 Dose: 50 mg Documented by: Risperidone (Risperidone 2 Mg Tablet) 2 mg PO BID [facility] Stop: 09/30/20 09:59 Last Admin: 09/01/20 08:35 Dose: 2 mg Documented by: Sodium Chloride (Sodium Chloride 0.65% Na Soln 45 Ml ([place])) 1 - 2 sprays NA PRN PRN PRN Reason: Nasal Dryness/Congestion Stop: 09/25/20 23:39 Zolpidem Tartrate (Zolpidem Tartrate 10 Mg Tab) 10 mg PO HS PRN PRN Reason: Sleep Stop: 09/29/20 13:40 Last Admin: 08/31/20 21:05 Dose: 10 mg Documented by: Mental Health & Subst Abuse Tx Therapist Name of Therapist: None Lehr Stripper Name of Lehr Stripper: None (1) Psychosis Psychosis type: unspecified psychosis type Qualified Code(s): F29 - Unspecified psychosis not due to a substance or known physiological condition
[2020-09-01] MEDS: ACETAMINOPHEN 325 MG TAB PO PRN ×2 (11:53→19:35)
[2020-09-01] MEDS: diphenhydrAMINE Capsule 25 MG CAP PO PRN (15:03)
[2020-09-01] MEDS: QUEtiapine FUMARATE 25 MG TABLET PO PRN ×2 (16:05→22:12)
[2020-09-01] MEDS: ZOLPIDEM TARTRATE 10 MG TAB PO PRN (22:12)
[2020-09-02] MEDS: hydrOXYzine HCl 25 MG TAB PO PRN (00:43)
[2020-09-02] MEDS: diphenhydrAMINE Capsule 25 MG CAP PO PRN (04:37)
[2020-09-02] MEDS: GABAPENTIN 300 MG CAP PO SCH (08:18)
[2020-09-02] MEDS: risperiDONE 2 MG TABLET PO SCH (08:18)
--- NOTE | 2020-09-02 08:54 | Psychiatric Progress Note ---
Date of Service September 02, 2020 Impression / Recommendations Impression The patient is a 45yo female with current psychosis and likely tomas given at time of admission on 08/27 reported poor sleep, and pressured speech and flight of ideas with paranoid delusional based ideation that she is being stalked , but also that she is posessed by evil and being eaten from the inside out. 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 INpatient is least restrictive and most appropriate setting for care while we stablize her mood and thought disorder, establish medication regimen, obtain further collateral and identify any additional stressors (e.g. legal concerns) and supports, and arrange aftercare in/near a community where she lives. (1) Psychosis: 08/27 and 08/28 - inpatient is lease restrictive and most appropriate setting for care given so severely psychotic could not function in community to care for self, 302 ends 08/31/20 evening - Risperdal 1mg po bid with 0.5mg q6h prn agitation/psychosis - reality testing, and overtime [facility] as she improves 08/29 -Increased Risperdal to 1 mg p.o. 3 times daily, I did consider adding a secondary mood stabilizer but given that she is on the clonidine withdrawal protocol and we added gabapentin I will hold at this time 08/30 -The patient continues to voice a systematized delusional belief that the devil ("or somebody") keeps attempting to eviscerate her during the night. She insists that sometimes this actually does happen, and for that reason she stays awake and on guard. However, at the same time, she tells me that she wishes she could sleep and is distressed because she is not able to sleep. The patient has difficulty reconciling this apparent contradiction. When it was felt back to her that the nursing staff says that, for example, she slept 5-1/2 hours last night, she asserted that she had not slept at all and that she is aware when the nurses check on her, but she just keeps her eyes closed. I advised her that should this happen in the future she should open her eyes and say "I am awake." -Patient worsened she has a history of favorable response to zolpidem 10 mg at bedtime for sleep, and I advised her that this would not be a long-term medication but that we could use it temporarily while we are seeking stabilization. Zolpidem 10 mg at bedtime as needed for sleep was prescribed. -The patient indicates that she feels that risperidone has been helpful to her with her anxiety. It does not seem to have made any significant difference in her delusional beliefs which are systematized and firmly held today. Also, today the patient has reference to the belief that her late cousin, a man who committed suicide by laying on railroad tracks, comes to her at night, sits by her bed, and talks to her. She says that she hears them say things such as "I cannot hear the railroad tracks anymore." -The plan is to continue risperidone 1 mg 3 times a day. I have discontinued risperidone 0.5 mg as needed for anxiety and will offer the patient a trial of quetiapine 25 mg every 4 hours as needed anxiety (related to psychosis). She will be reassessed for this tomorrow. 08/31 -Patient notes that she did sleep better last night. She had an episode last evening where when she informed the nurses that her neck felt stiff, and she appeared to be possibly voluntarily rolling her eyes towards the back of her head. The patient recalled what I had told her yesterday about the possibility of a dystonic reaction, and she was given diphenhydramine 25 mg IM. The patient said that she felt "better," and slept. The patient also reports that Ambien 10 mg at bedtime was helpful in inducing sleep, although she still says that she is not sleeping quite as much as she would like to. Also, as noted above, the patient reports that she feels the quetiapine 25 mg every 4 hours as needed for anxiety or psychosis has been somewhat more helpful than risperidone as needed for the same complaint, but notes that both are helpful. The patient reports that she has previously taken significantly higher dosages of quetiapine and we discussed increasing the dose of her as needed quetiapine to a dose of 50 mg every 4 hours as needed for anxiety or psychosis. For now, we will also plan to continue standing dose of risperidone, but the dose of risperidone today has been increased to a dose of 2 mg twice a day from a dose of 1 mg 3 times a day. An option will be to substitute standing dose quetiapine for risperidone once the patient is more stable. -Patient is scheduled for 303 hearing this morning. I explained the purpose of the hearing to her, explained her rights, and provided her with an opportunity to ask questions. The patient replied that she would like to be discharged "today if possible." Accordingly, we will proceed with 303 hearing. 09/01 -Psychosis unresolved however she does appear to be demonstrating some modest improvement in insight and thought organization with some tincture of time on Risperdal. Based on conversation today, I am not confident in her ability to appropriately comply with antipsychotic oral treatment regimen on an outpatient basis and discussed consideration for conversion to Risperdal Consta prior to discharge and she did express willingness for the long-acting injectable. -increase prn seroquel as below (2) Opiate withdrawal: 08/27 suspected, confirmed by further history and obvious sx 08/28 placed on clonidine/lomotil protocol,. when more organized will discuss D&A services and aftercare 08/30 -It does not currently appear that the patient is experiencing opioid withdrawal. She protest that she does not use opioids and never has. 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 However her toxicology screen admission was not positive for opioids. We will continue to monitor. 08/31 -AWSS Discontinued. No further signs of opioid withdrawal. 09/01 -VSS (3) Benzodiazepine withdrawal: 08/27 and continued 08/28 placed on AWSS with ativan symptomatic dosing, but will not prescribe scheduled medications for this patient, once more organized will discuss outpatient D&A services 08/28 -Added gabapentin 300 mg p.o. 3 times daily to target reduction of seizure risk as well as noncontrolled way of addressing anxiety 08/29 -Added seizure precautions but continued medications as above patient has not seen a neurologist in several years the pattern of her seizures does sound like they may be related to benzodiazepine withdrawal we will monitor closely and try to mitigate the risk of withdrawal seizures. 08/31 -AWSS Discontinued. No physical signs of benzodiazepine withdrawal currently. Patient continues to report anxiety. 09/01 -Declined her request to reinitiate benzodiazepine today and reeducated regarding risks (4) Substance-induced anxiety disorder: 08/28 and 08/29 severe anxiety above AWSS and ativan scored dosing, may be due to benzo withdrawal, opiate withdrawal, elevated/irritable mood, and psychosis, but could be underlying primary anxiety disorder as well. Will add gabapentin 300mg po tid to target anxiety with non-controlled med that will not risk further elevated mood states, and reassess once her mood is more stable if this is best option. Will watch for sedation given risperdal gabapentin, scored dosing of ativan. 08/30 -Patient is no longer scoring on the AWSS such that lorazepam is required. However, the patient continues to be drug-seeking and, specifically, is regularly seeking benzodiazepines. She tells us today that she has "no idea" why lab testing and admission showed that she had recently taken Xanax and explains, "I didn't pop a Xanax." However, the patient reports that she has been taking various benzodiazepines since she was about 18 years old. I reminded her that she had recently been incarcerated in another state and would not have been taking benzodiazepines while in [facility]. She confirmed that she was not taking benzodiazepines after she was confronted with the report that there is no evidence in the state database (PDMP) that she had recently been prescribed benzodiazepines in [place] or in other [facility], including [place] (where she reportedly was incarcerated). -When told that she would not be prescribed benzodiazepines for anxiety, the patient said that she understood, but then told me that she has "seizures" and used to take phenobarbital which is calm according the patient, "the only thing" that helps with her seizures. The patient says that she had an unwitnessed seizure last night that involved her head tilting back, her neck feeling stiff, and her eyes rolling up in her head. She did not lose consciousness, and did not lose bowel or bladder function. I advised the patient that it is possible that she had a dystonic reaction and that I would order medications that she could take should she have a similar episode at another time during the hospital stay. 08/31 -The patient reportedly told a nursing staff member last evening that, in fact, she had been abusing benzodiazepines and, in addition, had been using heroin in the recent past. She also suggested that she may have been using other drugs, including methamphetamine. -She remains anxious. As above, the patient reports that she has responded favorably to the addition of as needed quetiapine, but not to her full satisfaction. Patient does appear anxious, and the dose of quetiapine has been increased from a dose of 25 mg every 4 hours as needed for anxiety/psychosis to quetiapine 50 mg every 4 hours as needed for anxiety or psychosis. The patient indicates that in the past she has taken doses of quetiapine as high as 400 mg a day or higher, so no maximum dose has been specified within the above parameter. 09/01 -Patient acknowledges a long history of recreational substance abuse and demonstrates severely impaired insight regarding the risks associated with that behavior. She is being referred to [facility] for dual diagnosis f/u -Discussed with patient that antipsychotic polypharmacy is nonpreferred treatment strategy and considered off label. Due to increased abuse risk associated with Seroquel I am uncertain that she would be able to reliably self administer as an outpatient however will continue to utilize on an as needed basis on the inpatient unit for acute anxiety changing dose from 50 mg every 4 hours as needed to a 75 mg every 6 hours as needed today Inventory Assets Strengths: in a safe environmnet, willing to take medications Needs: further assessment, inpatient stabilization, aftercare, identification of supports Risk Factors Assessment Male: No : Yes Do You Have Access To A Gun?: No Health Problems: No Mental Health Diagnoses: Yes Substance Use Disorders: Yes Previous Attempt: Yes Previous Attempt; Highly Lethal: No Previous Attempt; Planned: No Previous Attempt; Didn't Tell Anyone: No Family History of Suicide: Yes Previous Psychiatric Hospitalization: Yes Hopelessness: No Smoker: Yes Protective Factors Assessment Holiness Beliefs: Yes : No Responsible for Young Children: No Employed: No Stable Relationships: No Supportive Family: Yes (Patient indicates that her family is supportive. ) Good Rapport with Provider: No Absence of Any Risk Factors Above: No Interval History Chief Complaint "[]". Review of Systems Sleep Information Total Hours of Sleep: 5.5 Sleep Comments: patient complaining of nightmares. Meal Information Percent Meal Consumed - Breakfast: 100 Percent Meal Consumed - Lunch: 100 Percent Meal Consumed - Dinner: 100 Subjective Subjective Patient was seen & assessed and interval progress reviewed with nursing and social work. Staff report she has been focused on requests for multiple controlled substances, delusional and psychotically preoccupied. She has a meeting today with a man she met two days prior to hospitalization and had been staying with. Physical Exam Vital Signs (Past 24 Hours) Last Vital Signs Temp 36.7 C 09/02/20 06:00 Pulse 79 09/02/20 06:44 Resp 20 09/02/20 06:00 BP 126/84 09/02/20 06:44 Pulse Ox 97 08/29/20 20:26 Results & Data ([facility]) Current Inpatient Medications Current Inpatient Medications: Current Inpatient Medications Acetaminophen (Acetaminophen 325 Mg Tab) 650 mg PO Q4H PRN PRN Reason: Headache or Minor Fever Stop: 09/25/20 23:39 Last Admin: 09/01/20 19:35 Dose: 650 mg Documented by: Al Hydrox/Mg Hydrox/Simethicone (Aluminum/Magnesium Susp 30 Ml Udc) 30 ml PO Q4H PRN PRN Reason: GI Upset Stop: 09/25/20 23:39 Last Admin: 08/28/20 10:25 Dose: 30 ml Documented by: Bismuth Subsalicylate (Bismuth Subsalicylate Liqd 236 Ml) 15 ml PO PRN PRN PRN Reason: Loose Stool Stop: 09/25/20 23:39 Last Admin: 09/01/20 11:39 Dose: 15 ml Documented by: Clonidine HCl (Clonidine Hcl 0.1 Mg Tab) 0.1 mg PO Q2H PRN PRN Reason: For any 2 symptoms Stop: 09/27/20 13:07 Last Admin: 08/30/20 16:39 Dose: 0.1 mg Documented by: Diphenhydramine HCl (Diphenhydramine 50 Mg/Ml Vial) 25 mg IM Q6H PRN PRN Reason: Dystonic Reaction Stop: 09/29/20 14:07 Last Admin: 08/30/20 20:30 Dose: 25 mg Documented by: Diphenhydramine HCl (Diphenhydramine Capsule 25 Mg Cap) 25 mg PO BID PRN PRN Reason: Neck/muscle stiffness Stop: 09/30/20 12:15 Last Admin: 09/02/20 04:37 Dose: 25 mg Documented by: Diphenoxylate HCl/Atropine (Diphenoxylate/Atropine 2.5/0.025mg Tab) 1 tab PO Q4H PRN PRN Reason: Abdomincal cramping/diarrhea Stop: 09/27/20 13:07 Last Admin: 08/30/20 10:13 Dose: 1 tab Documented by: Gabapentin (Gabapentin 300 Mg Cap) 300 mg PO TID YANELIS Stop: 09/27/20 13:59 Last Admin: 09/02/20 08:18 Dose: 300 mg Documented by: Hydroxyzine HCl (Hydroxyzine Hcl 25 Mg Tab) 50 mg PO HSZ PRN PRN Reason: Insomnia Stop: 09/25/20 23:39 Last Admin: 09/02/20 00:43 Dose: 50 mg Documented by: Hydroxyzine HCl (Hydroxyzine Hcl 25 Mg Tab) 25 mg PO Q4H PRN PRN Reason: Anxiety Stop: 09/25/20 23:39 Last Admin: 08/29/20 21:18 Dose: 25 mg Documented by: Magnesium Hydroxide (Magnesium Hydroxide Susp 30 Ml Udc) 30 ml PO DAILY PRN PRN Reason: Constipation Stop: 09/25/20 23:39 Quetiapine Fumarate (Quetiapine Fumarate 25 Mg Tablet) 75 mg PO Q6H PRN PRN Reason: Anxiety/Psychosis Stop: 09/30/20 09:30 Last Admin: 09/01/20 22:12 Dose: 75 mg Documented by: Risperidone (Risperidone 2 Mg Tablet) 2 mg PO BID YANELIS Stop: 09/30/20 09:59 Last Admin: 09/02/20 08:18 Dose: 2 mg Documented by: Sodium Chloride (Sodium Chloride 0.65% Na Soln 45 Ml ([place])) 1 - 2 sprays NA PRN PRN PRN Reason: Nasal Dryness/Congestion Stop: 09/25/20 23:39 Zolpidem Tartrate (Zolpidem Tartrate 10 Mg Tab) 10 mg PO HS PRN PRN Reason: Sleep Stop: 09/29/20 13:40 Last Admin: 09/01/20 22:12 Dose: 10 mg Documented by: Mental Health & Subst Abuse Tx Therapist Name of Therapist: None Central Office Equipment Engineer Name of Central Office Equipment Engineer: None (1) Psychosis Psychosis type: unspecified psychosis type Qualified Code(s): F29 - Unspecified psychosis not due to a substance or known physiological condition
--- NOTE | 2020-09-02 11:00 | Discharge Summary ---
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 OH-Midazolam Confirm Ur Cocaine Metabolite U Marijuana (THC) Screen Drug Screen Comment Ethyl Alcohol mg/dL SARS-CoV-2 Ag (Rapid) Cancelled Negative Hospital Course (1) Substance-induced psychotic disorder: 08/27 and 08/28 - inpatient is lease restrictive and most appropriate setting for care given so severely psychotic could not function in community to care for self, 302 ends 08/31/20 evening - Risperdal 1mg po bid with 0.5mg q6h prn agitation/psychosis - reality testing, and overtime involvement in mileu as she improves 08/29 -Increased Risperdal to 1 mg p.o. 3 times daily, I did consider adding a secondary mood stabilizer but given that she is on the clonidine withdrawal protocol and we added gabapentin I will hold at this time 08/30 -The patient continues to voice a systematized delusional belief that the devil ("or somebody") keeps attempting to eviscerate her during the night. She insists that sometimes this actually does happen, and for that reason she stays awake and on guard. However, at the same time, she tells me that she wishes she could sleep and is distressed because she is not able to sleep. The patient has difficulty reconciling this apparent contradiction. When it was felt back to her that the nursing staff says that, for example, she slept 5-1/2 hours last night, she asserted that she had not slept at all and that she is aware when the nurses check on her, but she just keeps her eyes closed. I advised her that should this happen in the future she should open her eyes and say "I am awake." -Patient reports she has a history of favorable response to zolpidem 10 mg at bedtime for sleep, and I advised her that this would not be a long-term medication but that we could use it temporarily while we are seeking stabilization. Zolpidem 10 mg at bedtime as needed for sleep was prescribed. -The patient indicates that she feels that risperidone has been helpful to her with her anxiety. It does not seem to have made any significant difference in her delusional beliefs which are systematized and firmly held today. Also, today the patient has reference to the belief that her late cousin, a man who committed suicide by laying on railroad tracks, comes to her at night, sits by her bed, and talks to her. She says that she hears them say things such as "I cannot hear the railroad tracks anymore." -The plan is to continue risperidone 1 mg 3 times a day. I have discontinued risperidone 0.5 mg as needed for anxiety and will offer the patient a trial of quetiapine 25 mg every 4 hours as needed anxiety (related to psychosis). She will be reassessed for this tomorrow. 08/31 -Patient notes that she did sleep better last night. She had an episode last evening where when she informed the nurses that her neck felt stiff, and she appeared to be possibly voluntarily rolling her eyes towards the back of her head. The patient recalled what I had told her yesterday about the possibility of a dystonic reaction, and she was given diphenhydramine 25 mg IM. The patient said that she felt "better," and slept. The patient also reports that Ambien 10 mg at bedtime was helpful in inducing sleep, although she still says that she is not sleeping quite as much as she would like to. Also, as noted above, the patient reports that she feels the quetiapine 25 mg every 4 hours as needed for anxiety or psychosis has been somewhat more helpful than risperidone as needed for the same complaint, but notes that both are helpful. The patient reports that she has previously taken significantly higher dosages of quetiapine and we discussed increasing the dose of her as needed quetiapine to a dose of 50 mg every 4 hours as needed for anxiety or psychosis. For now, we will also plan to continue standing dose of risperidone, but the dose of risperidone today has been increased to a dose of 2 mg twice a day from a dose of 1 mg 3 times a day. An option will be to substitute standing dose quetiapine for risperidone once the patient is more stable. -Patient is scheduled for 303 hearing this morning. I explained the purpose of the hearing to her, explained her rights, and provided her with an opportunity to ask questions. The patient replied that she would like to be discharged "today if possible." Accordingly, we will proceed with 303 hearing. 09/01 -Psychosis unresolved however she does appear to be demonstrating some modest improvement in insight and thought organization with some tincture of time on Risperdal. Based on conversation today, I am not confident in her ability to appropriately comply with antipsychotic oral treatment regimen on an outpatient basis and discussed consideration for conversion to Risperdal Consta prior to discharge and she did express willingness for the long-acting injectable. -increase prn seroquel as below 09/02 -Meeting held with friend, Severiano, who patient will be staying with after discharge; they both denied any acute safety concerns, feels she is at baseline, and were in favor of discharge. -Although patient had previously agreed to a long-acting injectable, she is now declining, but agrees to continue taking oral medication. Discharged with #14-day prescriptions for risperidone and gabapentin with 1 refill (given concerns for nonadherence, giving smaller supply to limit access to large am ounts of pills and risk of misuse/dangerous overdose). Recommend tapering gabapentin in the next several weeks as substance-induced anxiety stabilizes, as it is abusable and not a good long-term choice for her. -Patient has been counseled about the risks of ongoing substance use including return of or worsening of psychotic symptoms, and recommendations for abstinence from controlled substances and outpatient substance abuse treatment as below. She has been referred to [facility] for dual diagnosis treatment. 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 (2) Substance-induced anxiety disorder: 08/28 and 08/29 severe anxiety above AWSS and ativan scored dosing, may be due to benzo withdrawal, opiate withdrawal, elevated/irritable mood, and psychosis, but could be underlying primary anxiety disorder as well. Will add gabapentin 300mg po tid to target anxiety with non-controlled med that will not risk further elevated mood states, and reassess once her mood is more stable if this is best option. Will watch for sedation given risperdal gabapentin, scored dosing of ativan. 08/30 -Patient is no longer scoring on the AWSS such that lorazepam is required. However, the patient continues to be drug-seeking and, specifically, is regularly seeking benzodiazepines. She tells us today that she has "no idea" why lab testing and admission showed that she had recently taken Xanax and explains, "I didn't pop a Xanax." However, the patient reports that she has been taking various benzodiazepines since she was about 18 years old. I reminded her that she had recently been incarcerated in another state and would not have been taking benzodiazepines while in [place] [facility]. She confirmed that she was not taking benzodiazepines after she was confronted with the report that there is no evidence in the state database (PDMP) that she had recently been prescribed benzodiazepines in [place] or in other [facility], including [place] (where she reportedly was incarcerated). -When told that she would not be prescribed benzodiazepines for anxiety, the patient said that she understood, but then told me that she has "seizures" and used to take phenobarbital which is calm according the patient, "the only thing" that helps with her seizures. The patient says that she had an unwitnessed seizure last night that involved her head tilting back, her neck feeling stiff, and her eyes rolling up in her head. She did not lose consciousness, and did not lose bowel or bladder function. I advised the patient that it is possible that she had a dystonic reaction and that I would order medications that she could take should she have a similar episode at another time during the hospital stay. 08/31 -The patient reportedly told a nursing staff member last evening that, in fact, she had been abusing benzodiazepines and, in addition, had been using heroin in the recent past. She also suggested that she may have been using other drugs, including methamphetamine. -She remains anxious. As above, the patient reports that she has responded favorably to the addition of as needed quetiapine, but not to her full satis faction. Patient does appear anxious, and the dose of quetiapine has been increased from a dose of 25 mg every 4 hours as needed for anxiety/psychosis to quetiapine 50 mg every 4 hours as needed for anxiety or psychosis. The patient indicates that in the past she has taken doses of quetiapine as high as 400 mg a day or higher, so no maximum dose has been specified within the above parameter. 09/01 -Patient acknowledges a long history of recreational substance abuse and demonstrates severely impaired insight regarding the risks associated with that behavior. She is being referred to [facility] for dual diagnosis f/u -Discussed with patient that antipsychotic polypharmacy is nonpreferred treatment strategy and considered off label. Due to increased abuse risk associated with Seroquel I am uncertain that she would be able to reliably self administer as an outpatient however will continue to utilize on an as needed basis on the inpatient unit for acute anxiety changing dose from 50 mg every 4 hours as needed to a 75 mg every 6 hours as needed today (3) Opiate withdrawal: 08/27 suspected, confirmed by further history and obvious sx 08/28 placed on clonidine/lomotil protocol,. when more organized will discuss D&A services and aftercare 08/30 -It does not currently appear that the patient is experiencing opioid withdrawal. She protest that she does not use opioids and never has. The patient is not considered a reliable lpn cma. However her toxicology screen admission was not positive for opioids. We will continue to monitor. 08/31 -AWSS Discontinued. No further signs of opioid withdrawal. 09/01 -VSS 09/02 -Opiate withdrawal has resolved. Patient continues to request multiple controlled substances, again advised her that it is not recommended she take medications that are addictive or abusable, given the high risk of abuse/misuse/negative outcomes. (4) Benzodiazepine withdrawal: 08/27 and continued 08/28 placed on AWSS with ativan symptomatic dosing, but will not prescribe scheduled medications for this patient, once more organized will discuss outpatient D&A services 08/28 -Added gabapentin 300 mg p.o. 3 times daily to target reduction of seizure risk as well as noncontrolled way of addressing anxiety 08/29 -Added seizure precautions but continued medications as above patient has not seen a neurologist in several years the pattern of her seizures does sound like they may be related to benzodiazepine withdrawal we will monitor closely and try to mitigate the risk of withdrawal seizures. 08/31 -AWSS Discontinued. No physical signs of benzodiazepine withdrawal currently. Patient continues to report anxiety. 09/01 -Declined her request to reinitiate benzodiazepine today and reeducated regarding risks Mental Health & Subst Abuse Tx Therapist Name of Therapist: None Activities Coordinator Name of Activities Coordinator: [facility] Phone Number for Activities Coordinator: [phone] Case Management Appointment Comment: Will call to schedule to see you Post Discharge Appointments Contact Information Discharge Discharge [address]: [address] [place] [address] / [address] [place] [address] Discharge Plan Discharge Items Patient Disposition: Home - Self-Care Reason For Visit: PSYCHOSIS NOS Discharge Diagnosis: Substance-induced psychotic and anxiety disorders Polysubstance abuse (opiates, benzodiazepines) Condition on Discharge: Good Activity: Per Instructions section Non-emergency contact: Psychiatrist, Therapist and Emergency Management System Director Call non-emergency contact if: you have any medication questions and your symptoms worsen Follow-up/Referrals: PCP,NO [Primary Care Provider] - Diet: Regular Addtl Attending Provider Instructions: SPECIAL CARE INSTRUCTIONS: 1. Follow through with your scheduled aftercare appointments. If unable to keep an appointment, please call to reschedule. 2. Take your medication only as prescribed. Medication should not be changed or stopped without the approval of your doctor. In the event of worsening symptoms or concerns about side effects, contact your doctor immediately. 3. Utilize new healthy coping skills, anger management skills, and stress management skills learned during your hospitalization. Journal feelings and process them with a support person. Identify stressors or situations that may result in relapse, deterioration or inappropriate behaviors and develop a plan to deal with those issues. 4. If your coping skills are ineffective and you are in crisis, contact your outpatient providers for direction. If unable to reach your providers, please call the [facility] CRISIS LINE AT , go to the [facility] walk-in center at [address], [place], or go to the closest Emergency Room. 5. Avoid alcohol and un-prescribed drugs. 6. You have been provided with the Mental Health Advance Directives Pamphlet for your review. AFTERCARE APPOINTMENTS: * Please call your insurance company prior to your scheduled appointment to confirm your aftercare providers are covered. Take your insurance information to your appointments. WHO TO CALL AND WHEN: Medical Emergencies: For questions or emergencies related to your hospital stay, please contact the Inpatient Behavioral Health Unit at [phone]. A access clinician is on-call 26/03 for the Behavioral Health Unit for emergencies At any time you feel your situation is an emergency, you may also call 911 immediately. Pending Studies at Discharge: No Stand-Alone Forms: My [facility] AWID, Smoking Cessation Medications and DC Order Prescriptions: New risperidone 2 mg Tablet 2 mg PO BID Qty: 28 RF: 1 gabapentin 300 mg Capsule 300 mg PO TID Qty: 45 RF: 1 Discontinued alprazolam [Xanax] 0.5 mg Tablet 0.5 mg PO BID PRN (Reason: Anxiety) RF: 0 Discharge Orders: Discharge Order (Routine); Ordered 09/02/20 Ordered By: Amisha Pierce Admission Data Admit Date/Time: 08/27/20 00:25 Attending Provider: Estela Shaffer Admit Provider: Estela Shaffer Primary Care Provider: PCP,NO Other Interventions: Discharge Summary Assessment (RN) Last Done: 09/02/20 11:33 PSY Interdisciplinary Discharge Planning Last Done: 09/02/20 12:10 Coding Level of Care Code 72119 D/C day mgmt > 30 min Diagnoses Substance-induced psychotic disorder F19.959 Substance-induced anxiety disorder F19.980 Opiate withdrawal F11.23 Benzodiazepine withdrawal F13.239
== END 2020-09-02 12:15 | disposition home or self-care (01) | DRG 885 ==
LOC: ED 15:09 → 3S 08-27 00:25